=== PATIENT | female | born 1970 | race Caucasian/White ===

== ENCOUNTER → 2016-05-03 | Outpatient (CLI) | payer OTHER ==
--- NOTE | 2016-05-03 09:55 | USB ---
Reason for exam: clinical finding. History: Patient is postmenopausal. Family history of breast cancer in maternal grandmother at age 60, breast cancer in paternal grandmother, breast cancer in maternal aunt at age 40, and breast cancer in maternal aunt at age 48. Benign US left CoreBiopsy of both breasts, January 24, 2007. Benign US left CoreBiopsy of the left breast, March 31, 2005. Benign excisional biopsy of the left breast, July 2004. Excisional biopsy of the right breast, May 2000. Cyst aspiration of the right breast, April 2000. Took hormonal contraceptives for 7 years beginning at age 18. Indicated problem(s): palpable abnormality in the right breast. Physical Findings: Nurse did not find any significant physical abnormalities on exam. US Breast BILAT Left breast ultrasound including all four quadrants, the retroareolar region and axilla demonstrates a 0.4 x 0.3 x 0.4cm oval, cystic lesion at 9 o'clock and a 0.3 x 0.2 x 0.4cm oval, cystic lesion at 2 o'clock. Right breast ultrasound including all four quadrants, the retroareolar region and axilla demonstrates a 0.2 x 0.2 x 0.3cm oval lesion too small to characterize at 11 o'clock. These results were verbally communicated with the patient and result sheet given to the patient on 05/03/16. ASSESSMENT: Benign, BI-RAD 2 RECOMMENDATION: Routine screening mammogram of both breasts in 4 months. Back on schedule.
== END | disposition home or self-care (01) ==
LOC: RADUSWWP 08:45
PROVIDERS: ATTEND Surgery
DX: R92.8 Other abnormal and inconclusive findings on diagnostic imaging of breast (principal)

== ENCOUNTER → 2016-05-03 | Outpatient (CLI) | payer OTHER ==
[2016-05-03 10:12] LABS: Basophils % (A) 1 %; CH 34.4; CHCM 31.8; Eosinophils # (A) 0.2 k/uL (0-0.7); Eosinophils % (A) 6 %; HCT 43.9 % (34.0-46.0); HDW 2.75; HGB 14.1 gm/dL (11.4-16.0); Luc # (Auto) 0.11; Luc % (Auto) 3; Lymphocytes # (A) 1.4 k/uL (1.0-4.8); Lymphocytes % (A) 33 %; MCHC 32.1 g/dL (31.0-37.0); MCV 108.9 fL (80.0-100.0); Macrocytosis Marked; Mean Platelet Volume 6.3; Monocytes # (A) 0.2 k/uL (0-1.0); Monocytes % (A) 5 %; Neutrophils # (A) 2.2 k/uL (1.3-7.7); Neutrophils % (A) 53 %; RBC 4.03 m/uL (3.80-5.40); WBC 4.1 k/uL (3.8-10.6); WBC (Perox) 4.25
[2016-05-03 10:16] LABS: Partial Thromboplastin Time 25.5 sec (22.0-30.0); Prothrombin Time 9.8 sec (9.0-12.0)
[2016-05-03 10:47] LABS: ALT 38 U/L (9-52); AST 35 U/L (14-36); Alkaline Phosphatase 72 U/L (38-126); Anion Gap 6 mmol/L; Blood Urea Nitrogen 18 mg/dL (7-17); Calcium 8.1 mg/dL (8.4-10.2); Carbon Dioxide 24 mmol/L (22-30); Chloride 111 mmol/L (98-107); Glucose 79 mg/dL (74-99); Non-African American GFR(MDRD) >60 (>60 ml/min/1.73 sqM); Potassium 4.2 mmol/L (3.5-5.1); Sodium 141 mmol/L (137-145); Total Bilirubin 0.2 mg/dL (0.2-1.3); Total Protein 5.5 g/dL (6.3-8.2)
[2016-05-03 11:22] LABS: Manual Review Performed
== END | disposition home or self-care (01) ==
LOC: LABWHC1 09:35
PROVIDERS: ATTEND Neurological Surgery
DX: M54.12 Radiculopathy, cervical region (principal); M54.14 Radiculopathy, thoracic region; M54.16 Radiculopathy, lumbar region; G44.52 New daily persistent headache (NDPH)
CPT/HCPCS: 36415; 80053; 85025; 85610; 85730

== ENCOUNTER → 2016-06-11 | Outpatient (CLI) | payer OTHER ==
[2016-06-11 12:46] LABS: Appearance,Urine Clear (Clear); Bilirubin,Urine Negative (Negative); Glucose,Urine (UA) Negative (Negative); Ketones,Urine Negative (Negative); Leukocyte Esterase,Urine Negative (Negative); Nitrite,Urine Negative (Negative); Protein,Urine Negative (Negative); Specific Gravity,Urine 1.015 (1.001-1.035); UA Billing (MACRO vs. MICRO) CHEM; Urobilinogen,Urine <2.0 mg/dL (<2.0)
[2016-06-11 12:49] LABS: INR 0.9 (<1.1); Prothrombin Time 9.4 sec (9.0-12.0)
[2016-06-11 13:07] LABS: Basophils % (A) 1 %; CH 35.9; CHCM 32.5; Eosinophils # (A) 0.1 k/uL (0-0.7); Eosinophils % (A) 3 %; HCT 35.2 % (34.0-46.0); HDW 2.72; Luc # (Auto) 0.09; Luc % (Auto) 2; Lymphocytes # (A) 1.1 k/uL (1.0-4.8); Lymphocytes % (A) 21 %; MCH 35.1 pg (25.0-35.0); MCHC 31.6 g/dL (31.0-37.0); MCV 111.1 fL (80.0-100.0); Macrocytosis Marked; Mean Platelet Volume 7.8; Monocytes # (A) 0.2 k/uL (0-1.0); Monocytes % (A) 4 %; Neutrophils # (A) 3.8 k/uL (1.3-7.7); Neutrophils % (A) 70 %; RBC 3.17 m/uL (3.80-5.40); RDW 15.8 % (11.5-15.5); WBC 5.4 k/uL (3.8-10.6); WBC (Perox) 5.52
[2016-06-11 13:08] LABS: ALT 31 U/L (9-52); AST 35 U/L (14-36); Alkaline Phosphatase 80 U/L (38-126); Anion Gap 5 mmol/L; Blood Urea Nitrogen 17 mg/dL (7-17); Calcium 8.2 mg/dL (8.4-10.2); Carbon Dioxide 29 mmol/L (22-30); Chloride 107 mmol/L (98-107); Glucose 89 mg/dL (74-99); HGB 11.1 gm/dL (11.4-16.0); Non-African American GFR(MDRD) >60 (>60 ml/min/1.73 sqM); Potassium 4.2 mmol/L (3.5-5.1); Sodium 141 mmol/L (137-145); Total Bilirubin 0.2 mg/dL (0.2-1.3); Total Protein 5.4 g/dL (6.3-8.2)
[2016-06-11 13:49] LABS: Polychromasia Present
== END | disposition home or self-care (01) ==
LOC: LABWHC1 12:03
PROVIDERS: ATTEND Neurological Surgery
DX: Z01.812 Encounter for preprocedural laboratory examination (principal); Z01.810 Encounter for preprocedural cardiovascular examination; Z01.811 Encounter for preprocedural respiratory examination; Z01.82 Encounter for allergy testing; Z01.83 Encounter for blood typing
CPT/HCPCS: 36415; 80053; 81003; 85025; 85610; 85730; 87086

== ENCOUNTER → 2017-04-28 | Outpatient (CLI) | payer OTHER ==
--- NOTE | 2017-04-28 15:36 | US ---
EXAMINATION TYPE: US thyroid st tissue head/neck DATE OF EXAM: 04/28/2017 COMPARISON: NONE CLINICAL HISTORY: E03.9 Acquired Hypothyroidism. Hypothyroidism, patient on thyroid meds GLAND SIZE: Right Lobe: 4.6 x 1.2 x 1.9 cm Overall Parenchyma: heterogenous Left Lobe: 4.1 x 1.2 x 1.5 cm Overall Parenchyma: heterogeneous Isthmus Thickness: 0.2 cm NODULES RIGHT: # of nodules measured on right: 1 1. 1.2 X 0.7 x 1.1 cm hyperechoic solid nodule at the lower pole with well-defined margins. This no dule is wider than tall and shows intranodular vascularity. Prior size: no previous LEFT: # of nodules measured on left: 1 1. 0.4 X 0.3 x 0.4 cm hyperechoic solid nodule at the mid pole with well-defined margins. This nodu le is wider than tall and shows no intranodular vascularity. Prior size: no previous ISTHMUS: # of nodules measured in the isthmus: 0 Bilateral neck scanned, no evidence of lymphadenopathy. Heterogeneous gland with bilateral nodules described above. IMPRESSION: Heterogeneous normal size Thyroid with hyperechoic 1.2 cm solid nodule lower pole level.
== END | disposition home or self-care (01) ==
LOC: RADUSMAIN 15:00
PROVIDERS: ATTEND Family Medicine
DX: E04.1 Nontoxic single thyroid nodule (principal); E03.9 Hypothyroidism, unspecified
CPT/HCPCS: 76536

== ENCOUNTER → 2017-05-05 | Outpatient (CLI) | payer OTHER ==
--- NOTE | 2017-05-05 12:00 | XR ---
EXAMINATION TYPE: XR chest 2V DATE OF EXAM: 05/05/2017 COMPARISON: 08/15/2015 HISTORY: Chest pain TECHNIQUE: Frontal and lateral views of the chest are obtained. FINDINGS: There is no focal air space opacity. No evidence for pneumothorax. No pleural effusion. The cardiac silhouette size is within normal limits. The osseous structures are grossly intact. IMPRESSION: 1. No acute cardiopulmonary process.
[2017-05-05 12:01] LABS: Basophils % (A) 1 %; Eosinophils # (A) 0.3 k/uL (0-0.7); Eosinophils % (A) 4 %; HCT 43.9 % (34.0-46.0); HGB 14.1 gm/dL (11.4-16.0); Lymphocytes # (A) 1.3 k/uL (1.0-4.8); Lymphocytes % (A) 16 %; MCH 33.3 pg (25.0-35.0); Macrocytosis Slight; Mean Platelet Volume 6.2; Monocytes # (A) 0.3 k/uL (0-1.0); Monocytes % (A) 4 %; Neutrophils # (A) 5.8 k/uL (1.3-7.7); Neutrophils % (A) 75 %; Platelet Count 436 k/uL (150-450); RBC 4.22 m/uL (3.80-5.40); RDW 13.9 % (11.5-15.5); WBC 7.8 k/uL (3.8-10.6)
[2017-05-05 12:21] LABS: ALT 25 U/L (9-52); AST 21 U/L (14-36); Albumin 3.8 g/dL (3.5-5.0); Alkaline Phosphatase 76 U/L (38-126); Anion Gap 10 mmol/L; Blood Urea Nitrogen 23 mg/dL (7-17); Calcium 9.7 mg/dL (8.4-10.2); Carbon Dioxide 28 mmol/L (22-30); Chloride 105 mmol/L (98-107); Glucose 85 mg/dL (74-99); Potassium 4.2 mmol/L (3.5-5.1); Sodium 143 mmol/L (137-145); Total Bilirubin 0.2 mg/dL (0.2-1.3); Total Protein 6.3 g/dL (6.3-8.2)
[2017-05-05 12:37] LABS: INR 0.9 (<1.2); Partial Thromboplastin Time 24.2 sec (22.0-30.0); Prothrombin Time 9.4 sec (9.0-12.0)
== END | disposition home or self-care (01) ==
LOC: RADXRMAIN 11:16
PROVIDERS: ATTEND Family Medicine
DX: M54.5 Low back pain (principal)
CPT/HCPCS: 36415; 71046; 80053; 81001; 85025; 85610; 85730; 87086

== ENCOUNTER → 2017-08-12 | Outpatient (CLI) | payer OTHER ==
--- NOTE | 2017-08-14 09:52 | MR ---
EXAMINATION TYPE: MR brain wo/w con DATE OF EXAM: 08/12/2017 COMPARISON: 02-27-16 HISTORY: MS, compare to prior MR 02-27-16 TECHNIQUE: Multiplanar, multisequence images of the brain and brainstem is performed without and with utilizing 5.5 mL intravenous Gadavist gadolinium contrast. Demyelinating disease protocol with additional Sagi ttal Flair sequence performed. FINDINGS: T2 Lesions Present : Yes Approximate Number of Lesions: 1 on the right Locations Identified : Periventricular Size of Reference Lesion(s): 1. 0.5 cm x 0.2 cm x 0.2 cm on axial image 19 and sagittal image 20 Enhancing Lesion(s) Present: No T1 Hypointense Lesion(s) Present: No Change from Prior: Increase Diffusion weighted images demonstrate no evidence of a recent infarct or other diffusion abnormality. There is no worrisome extra-axial fluid collection. The ventricular system and cisternal spaces ar e normal in size and appearance. The brain volume is age appropriate. Midline structures demonstrate normal morphology. The craniocervical junction appears within normal limits. Post contrast images demonstrate no abnormal enhancement. The dural venous sinuses appear pa tent. The visualized sinuses are clear and the globes are intact. Mucosal thickening is incidentally seen along the right nasal turbinates. IMPRESSION: Solitary nonenhancing new right subcentimeter periventricular frontal lobe focus of white matter dodd ge is nonspecific but may represent a nonactive demyelinating plaque in this patient with history of multiple sclerosis. This is new from the prior 2015. No additional white matter changes are seen.
== END | disposition home or self-care (01) ==
LOC: RADMRIMAIN 16:39
PROVIDERS: ATTEND Psychiatry & Neurology Neurology
DX: R90.89 Other abnormal findings on diagnostic imaging of central nervous system (principal); G35 Multiple sclerosis
CPT/HCPCS: 70553; A9581

== ENCOUNTER → 2017-09-12 | Outpatient (CLI) | payer OTHER ==
[2017-09-12 20:22] LABS: Total Protein,CSF 33 mg/dL (12-60)
[2017-09-12 20:29] LABS: Appearance,CSF Clear; CSF Tube Number 4
[2017-09-12 20:30] LABS: CSF Tube Volume 3.5; Nucleated Cells, CSF 0 u/L (0-5); Red Blood Cell,CSF 2 u/L (0-10)
[2017-09-14 11:06] LABS: IgG - CSF 0.6 mg/dL (0.0 - 3.4); IgG/Albumin Index (CSF) 0.53 (0.00 - 0.77); Immunoglobulin G 333 mg/dL (700 - 1600)
== END | disposition home or self-care (01) ==
LOC: LABWHC1 09:03
PROVIDERS: ATTEND Nurse Practitioner Acute Care
DX: R90.82 White matter disease, unspecified (principal); R42 Dizziness and giddiness
CPT/HCPCS: 36415; 82040; 82042; 82784; 83873; 83916; 84157; 87476; 89050

== ENCOUNTER → 2018-01-26 | Outpatient (CLI) | payer OTHER ==
--- NOTE | 2018-01-26 09:29 | MR ---
EXAMINATION TYPE: MR brain wo/w con DATE OF EXAM: 01/26/2018 COMPARISON: 08/12/2017 HISTORY: Multiple sclerosis, Left side weakness/numbness, Dizziness TECHNIQUE: Multiplanar, multisequence images of the brain and brainstem is performed without and with IV contras t, utilizing 5 mL intravenous Gadavist . FINDINGS: T2 Lesions Present : Yes Approximate Number of Lesions: 1 on the right Locations Identified : Periventricular Size of Reference Lesion(s): 1. 0.5 cm x 0.2 cm x 0.2 cm Enhancing Lesion(s) Present: No T1 Hypointense Lesion(s) Present: No Change from Prior: Stable Diffusion weighted images demonstrate no evidence of a recent infarct or other diffusion abnormality. There is no extra-axial fluid collection or significant white matter signal abnormality. The ventr icular system and cisternal spaces are normal in size and appearance. The brain volume is age approp riate. Midline structures demonstrate normal morphology. The craniocervical junction appears within normal limits. Post contrast images demonstrate no abnormal enhancement. The dural venous sinuses appear pa tent. Nasal septal deviation noted. Minimal changes of sinusitis. Small amount of fluid surrounding t he optic nerves bilaterally is nonspecific. IMPRESSION: 1. Stable 5 mm single nonspecific white matter lesion within the right frontal lobe. 2. Small amount of fluid surrounding the optic nerves is stable from prior exam. This can occasionall y be associated with benign increased intracranial hypertension. Correlate clinically.
== END | disposition home or self-care (01) ==
LOC: RADMRIMAIN 08:25
PROVIDERS: ATTEND Psychiatry & Neurology Neurology
DX: G93.89 Other specified disorders of brain (principal); G35 Multiple sclerosis; Z91.041 Radiographic dye allergy status; Z88.0 Allergy status to penicillin; Z88.8 Allergy status to other drugs, medicaments and biological substances
CPT/HCPCS: 70553; A9585

== ENCOUNTER → 2018-06-27 | Outpatient (CLI) | payer OTHER ==
--- NOTE | 2018-06-27 11:13 | US ---
EXAMINATION TYPE: US abdomen complete DATE OF EXAM: 06/27/2018 COMPARISON: CT CLINICAL HISTORY: R74.8 Abnormal levels of other serum enzym, R10.11. EXAM MEASUREMENTS: Liver Length: 14.3 cm Gallbladder Wall: 0.3 cm CBD: 1.0 cm Spleen: 9.7 cm Right Kidney: 11.7 x 4.9 x 5.8 cm Left Kidney: 12.8 x 5.9 x 4.8 cm Pancreas: visualized portions wnl Liver: wnl Gallbladder: No stones seen Evidence for sonographic Barr's sign: No CBD: measures 1.0 cm, can see entire length to panc head, no stone or mass seen. Spleen: wnl Right Kidney: lower pole partially obscured by bowel. Left Kidney: wnl Upper IVC: wnl Abd Aorta: normal as visualized, bifurcation not seen due to midline bowel gas. The liver is homogenous. The intrahepatic portion of the IVC and proximal abdominal aorta are within normal limits. There is no evidence of cholelithiasis. Common bile duct is unremarkable. The visu alized portions of the pancreas are homogenous. The spleen is unremarkable. Kidneys are symmetric a nd free of hydronephrosis. No renal lesions are seen. IMPRESSION: No distinct abnormality appreciated.
== END | disposition home or self-care (01) ==
LOC: RADUSWWP 10:43
PROVIDERS: ATTEND Family Medicine
DX: R10.11 Right upper quadrant pain (principal); R74.8 Abnormal levels of other serum enzymes
CPT/HCPCS: 76700

== ENCOUNTER → 2018-10-10 | Outpatient (CLI) | payer OTHER ==
[2018-10-10 09:36] LABS: Basophils % (A) 1 %; Eosinophils # (A) 0.2 k/uL (0-0.7); Eosinophils % (A) 4 %; HCT 39.4 % (34.0-46.0); HGB 12.7 gm/dL (11.4-16.0); Hypochromasia Slight; Lymphocytes # (A) 0.5 k/uL (1.0-4.8); Lymphocytes % (A) 12 %; MCH 32.6 pg (25.0-35.0); MCHC 32.2 g/dL (31.0-37.0); Macrocytosis Slight; Mean Platelet Volume 6.8; Monocytes # (A) 0.4 k/uL (0-1.0); Monocytes % (A) 8 %; Neutrophils # (A) 3.3 k/uL (1.3-7.7); Neutrophils % (A) 73 %; Platelet Count 406 k/uL (150-450); RDW 14.7 % (11.5-15.5); WBC 4.5 k/uL (3.8-10.6)
[2018-10-10 11:49] LABS: Erythrocyte Sedimentation Rate 19 mm/hr (0-20)
== END | disposition home or self-care (01) ==
LOC: LABWHC1 08:00
PROVIDERS: ATTEND Psychiatry & Neurology Pain Medicine
DX: Z51.81 Encounter for therapeutic drug level monitoring (principal)
CPT/HCPCS: 36415; 85025; 85652; 86140

== ENCOUNTER → 2018-10-17 | Outpatient (CLI) | payer OTHER ==
--- NOTE | 2018-10-17 12:07 | XR ---
2 view abdomen HISTORY: Palpable mass, G 97.0 Frontal and lateral views of the abdomen submitted and correlated prior exam 05/30/2015 The pain pump is present overlying the right lower quadrant. There is a catheter coursing posteriorly along the right flank and toward a junction point in the gluteal region, catheter courses toward the spinal canal from this level but is not well seen but likely extends to the level of patient's marquita ectomies. Lung bases are clear. Surgical change noted to the left upper quadrant. Anterolisthesis gra de 1 L4-5. Gluteal region does appear prominently. IMPRESSION: Postprocedural changes as described. There may be soft tissue swelling.
--- NOTE | 2018-10-17 12:09 | XR ---
Lumbar spine HISTORY: Palpable mass lower back, G 97.0 Pain pump is present over the right lower quadrant. Catheter courses around the right flank to a junc tion point in the right gluteal region, there is local soft tissue swelling. Anterolisthesis grade 1 L4-5, retrolisthesis grade 1 L5-S1. There is loss of disc height L4-5 and L5-S1. Vascular calcificati ons are noted incidentally. There are laminectomies at L4 and L5. Lumbar vertebral bodies show preser melodie height. Bone mineralization is maintained. IMPRESSION: Degenerative disc disease, postop change, soft tissue swelling. Additional findings above .
== END | disposition home or self-care (01) ==
LOC: RADXRMAIN 11:21
PROVIDERS: ATTEND Neurological Surgery
DX: G97.0 Cerebrospinal fluid leak from spinal puncture (principal); M51.36 Other intervertebral disc degeneration, lumbar region; M43.16 Spondylolisthesis, lumbar region; Z98.890 Other specified postprocedural states
CPT/HCPCS: 72100; 74019

== ENCOUNTER → 2019-01-02 | Outpatient (CLI) | payer OTHER ==
[2019-01-02 09:44] LABS: Basophils % (A) 1 %; Eosinophils # (A) 0.2 k/uL (0-0.7); Eosinophils % (A) 4 %; HCT 42.3 % (34.0-46.0); HGB 13.2 gm/dL (11.4-16.0); Lymphocytes # (A) 0.4 k/uL (1.0-4.8); Lymphocytes % (A) 10 %; MCH 31.1 pg (25.0-35.0); MCHC 31.1 g/dL (31.0-37.0); MCV 99.8 fL (80.0-100.0); Mean Platelet Volume 6.2; Monocytes # (A) 0.3 k/uL (0-1.0); Monocytes % (A) 6 %; Neutrophils # (A) 3.2 k/uL (1.3-7.7); Neutrophils % (A) 77 %; Platelet Count 346 k/uL (150-450); RBC 4.24 m/uL (3.80-5.40); WBC 4.1 k/uL (3.8-10.6)
[2019-01-02 10:02] LABS: INR 0.9 (<1.2); Partial Thromboplastin Time 25.8 sec (22.0-30.0); Prothrombin Time 9.8 sec (9.0-12.0)
[2019-01-02 10:12] LABS: Appearance,Urine Clear (Clear); Bacteria,Urine Rare /hpf; Bilirubin,Urine Negative (Negative); Blood,Urine Negative (Negative); Color,Urine Yellow; Glucose,Urine (UA) Negative (Negative); Ketones,Urine Negative (Negative); Leukocyte Esterase,Urine Negative (Negative); Mucus,Urine Few /hpf; Nitrite,Urine Positive (Negative); Protein,Urine Negative (Negative); RBC,Urine 2 /hpf (0-5); Specific Gravity,Urine 1.014 (1.001-1.035); Squamous Epithelial Cell,Urine <1 /hpf (0-4); Urobilinogen,Urine <2.0 mg/dL (<2.0)
[2019-01-02 16:07] LABS: African American GFR (CKD) 132.6 (60.0-200.0); Albumin/Globulin Ratio 2.67 (1.60-3.17); Anion Gap 9.4 mmol/L (4.00-12.00); Calcium 8.8 mg/dL (8.7-10.3); Carbon Dioxide 26.6 mmol/L (21.6-31.8); Globulin 1.5 g/dL (1.6-3.3); Potassium 3.9 mmol/L (3.5-5.5); Total Bilirubin 0.1 mg/dL (0.2-1.2); Total Protein 5.5 g/dL (6.2-8.2)
== END | disposition home or self-care (01) ==
LOC: LABWHC1 09:04
PROVIDERS: ATTEND Neurological Surgery
DX: T85.610D Breakdown (mechanical) of cranial or spinal infusion catheter, subsequent encounter (principal); G96.19 Other disorders of meninges, not elsewhere classified
CPT/HCPCS: 36415; 80053; 81001; 85025; 85610; 85730

== ENCOUNTER → 2019-01-09 | Outpatient (CLI) | payer OTHER ==
--- NOTE | 2019-01-09 09:32 | XR ---
EXAMINATION TYPE: XR chest 2V DATE OF EXAM: 01/09/2019 COMPARISON: 05/05/2017 HISTORY: 48-year-old female preprocedural exam TECHNIQUE: Frontal and lateral views FINDINGS: The cardiomediastinal silhouette, aorta, and pulmonary vasculature are within normal limits. Lungs an d pleural spaces are clear. Partially visualized ACDF hardware. IMPRESSION: No acute cardiopulmonary process.
== END | disposition home or self-care (01) ==
LOC: RADXRMAIN 07:49
PROVIDERS: ATTEND Neurological Surgery
DX: Z01.818 Encounter for other preprocedural examination (principal)
CPT/HCPCS: 71046

== ENCOUNTER → 2019-05-22 | Outpatient (CLI) | payer OTHER ==
--- NOTE | 2019-05-22 11:55 | FL ---
EXAMINATION TYPE: FL barium swallow w video DATE OF EXAM: 05/22/2019 MODIFIED SWALLOW / DEGLUTITION STUDY CLINICAL HISTORY: Dysphagia. Multiple sclerosis. TECHNIQUE: Deglutition study is performed utilizing thin liquid barium, pudding thick liquid barium, and barium coated cracker. 44 seconds of fluoroscopy time was utilized during the examination with 0 fluoroscopic images saved as the examination was video recorded. COMPARISON: None. FINDINGS: The oral and pharyngeal phases show satisfactory initiation and propagation with all modali ties tested. Normal mastication is seen with solid modalities tested. There is no evidence of penet ration or aspiration with any modality tested. No significant pharyngeal residue was appreciated. IMPRESSION: Unremarkable deglutition study. Please refer to speech therapist notes for further detai ls if necessary.
== END | disposition home or self-care (01) ==
LOC: RADFLMAIN 09:55
PROVIDERS: ATTEND Family Medicine
DX: R13.10 Dysphagia, unspecified (principal)
CPT/HCPCS: 74230

== ENCOUNTER 2019-08-17 23:09 | Emergency (ER) | payer OTHER ==
[2019-08-17] MEDS ORDERED: methylPREDNISolone SOD SUCCI 125 MG/2 ML VIAL IV STA (23:44)
[2019-08-17] MEDS ORDERED: FAMOTIDINE 20 MG/2 ML VIAL IV STA (23:45)
[2019-08-17] MEDS ORDERED: diphenhydrAMINE 50 MG/ML 1 ML VIAL IVP STA (23:45)
--- NOTE | 2019-08-17 23:49 | ED ---
Allergic Reaction HPI - General Chief complaint: Allergic Reaction Stated complaint: Allergic reaction Time Seen by Provider: 08/17/19 23:26 Source: patient, RN notes reviewed, old records reviewed Mode of arrival: ambulatory Limitations: no limitations - History of Present Illness Initial Comments: Patient is a 49-year-old female who presents emergency department today with ALLERGIC reaction to tizanidine a new medication. She reports that she's had this new medication since Tuesday of this week taking it 3 times a day. Patient states that after her last dose this evening approximately 15 minutes later she developed a red, Prickly feeling rash over her arms and legs and trunk. She also complains of some upper cheek swelling. Patient at this time denies any significant difficulty breathing or tongue swelling. - Related Data Home Medications Medication Instructions Recorded Confirmed Albuterol Sulfate [Ventolin HFA] 2 puff INHALATION RT-QID PRN 02/07/15 01/09/19 Albuterol Nebulized [Ventolin 2.5 mg INHALATION RT-Q6H PRN 01/11/17 01/09/19 Nebulized] Amitriptyline HCl [Elavil] 100 mg PO DAILY 07/04/18 01/09/19 Buta/APAP/Caf/Cod 01-587-42-30 1 cap PO DIRECTED PRN 07/04/18 01/09/19 [Fioricet w/Cod 98-726-52-30MG] Cyclobenzaprine [Flexeril] 10 mg PO DAILY 07/04/18 01/09/19 Fingolimod HCl [Gilenya] 0.5 mg PO DAILY 07/04/18 01/09/19 Galcanezumab-Gnlm [Emgality] 120 mg SQ DIRECTED 07/04/18 01/09/19 Metoprolol Tartrate 25 mg PO DAILY 07/04/18 01/09/19 Omeprazole 20 mg PO DAILY 07/04/18 01/09/19 HYDROcodone/APAP 5-325MG [[place] 1 tab PO Q6HR PRN 10/10/18 01/09/19 5-325] Morphine Pain Pump 1.557 mg INTRATHECA DAILY MDD 10/10/18 01/09/19 1.557mg/day Previous Rx's Medication Instructions Recorded Thyroid, Pork [[place] Thyroid] 15 mg PO DAILY #30 tab 02/09/17 predniSONE [Deltasone] 20 mg PO BID #6 tab 08/18/19 Allergies Allergy/AdvReac Type Severity Reaction Status Date / Time gabapentin [From Neurontin] Allergy Rash/Hives Verified 08/17/19 23:21 influenza virus vaccine ts Allergy DIFFICULTY Verified 08/17/19 23:21 2012- BREATHING, [From Fluarix] RASH Iodinated Contrast Media Allergy Anaphylaxis Verified 08/17/19 23:21 [Iodinated Contrast Media - IV Dye] levothyroxine sodium Allergy Unknown Verified 08/17/19 23:21 [From Synthroid] magnesium Allergy rash,muscle Verified 08/17/19 23:21 spasms Penicillins Allergy Anaphylaxis Verified 08/17/19 23:21 Review of Systems ROS Statement: Those systems with pertinent positive or pertinent negative responses have been documented in the HPI. ROS Other: All systems not noted in ROS Statement are negative. Past Medical History Past Medical History: Blood Disorder, COPD, Fibromyalgia, GERD/Reflux, Musculoskeletal Disorder, Thyroid Disorder Additional Past Medical History / Comment(s): Chronic, chronic peptic ulcer disease, chronic abdominal pain, COPD, chronic neck pain related to previous neck injury, previous history of perforated gastric ulcer, chronic back pain related to lumbar disc disease, irritable bowel disease, COPD. FIBROMYALGIA,MS. HASHIMOTOS AND HYPOTHYROIDISM. Seroma opatient's back. - September 2018 History of Any Multi-Drug Resistant Organisms: None Reported Past Surgical History: Breast Surgery, Hysterectomy, Orthopedic Surgery, Tubal Ligation Additional Past Surgical History / Comment(s): Breast biopsy, hysterectomy, tubal ligation, stomach surgery for a perforated peptic ulcer, bilateral breast biopsies, right foot surgery, sinus surgery , gastrectomy. Abdominal Pain Pump surgically inserted in July 2018, removal jan 2019 Past Anesthesia/Blood Transfusion Reactions: Previous Problems w/ Anesthesia, Postoperative Nausea & Vomiting (PONV) Additional Past Anesthesia/Blood Transfusion Reaction / Comment(s): RASH from general anesthesia, RECEIVES BENADRYL FOR GENERAL ANESTHESIA. Past Psychological History: Anxiety Smoking Status: Current every day smoker Past Alcohol Use History: Rare Past Drug Use History: None Reported - Past Family History Father Family Medical History: Cancer Additional Family Medical History / Comment(s): lung cancer(inoperable) Brother(s) Family Medical History: Hypertension Mother Family Medical History: No Reported History Additional Family Medical History / Comment(s): bowel blockage and resection done General Exam - General Exam Comments Initial Comments: Alert and oriented 49-year-old female. No distress. Limitations: no limitations General appearance: alert, in no apparent distress Head exam: Present: atraumatic, normocephalic, normal inspection Eye exam: Present: normal appearance, PERRL, EOMI. Absent: scleral icterus, conjunctival injection, periorbital swelling ENT exam: Present: normal exam, mucous membranes moist Neck exam: Present: normal inspection. Absent: tenderness, meningismus, lymphadenopathy Respiratory exam: Present: normal lung sounds bilaterally. Absent: respiratory distress, wheezes, rales, rhonchi, stridor Cardiovascular Exam: Present: regular rate, normal rhythm, normal heart sounds. Absent: systolic murmur, diastolic murmur, rubs, gallop, clicks GI/Abdominal exam: Present: soft, normal bowel sounds. Absent: distended, tenderness, guarding, rebound, rigid Extremities exam: Present: normal inspection, full ROM, normal capillary refill. Absent: tenderness, pedal edema, joint swelling, calf tenderness Back exam: Present: normal inspection Neurological exam: Present: alert, oriented X3, CN II-XII intact Psychiatric exam: Present: normal affect, normal mood Skin exam: Present: warm, dry, intact, normal color. Absent: rash (No apparent urticaria or significant rash at this time.) Course Vital Signs 08/17/19 08/18/19 23:15 00:36 Temperature 98.1 F 97.9 F Pulse Rate 100 91 Respiratory 15 18 Rate Blood Pressure 130/81 129/91 O2 Sat by Pulse 98 98 Oximetry Medical Decision Making - Medical Decision Making 49-year-old female presents emergency room today for evaluation concern for ALLERGIC reaction. She states that she thinks that she's having a reaction to tizanidine. She started this new medication this week. She denies tingling sensation of her body and reticulocyte prickly-like rash over arms and legs. No significant redness to proceed on exam. She was given IV Solu-Medrol Pepcid and Benadryl. Reevaluation she is resting in bed. I discussed the Patient needs follow-up with her primary care doctor and advise discontinuing further prescription for tizanidine. Patient is agreeable to treatment plan will comply. Disposition Clinical Impression: Adverse drug reaction Disposition: HOME SELF-CARE Condition: Good Instructions (If sedation given, give patient instructions): Adverse Drug Reaction (ED) Additional Instructions: Please use medication as discussed. Recommended stopping Zanaflex. Please follow up with family doctor if symptoms have not improved over the next two days. Please return to the emergency room if your symptoms increase or worsen or for any other concerns. Prescriptions: predniSONE [Deltasone] 20 mg PO BID #6 tab Is patient prescribed a controlled substance at d/c from ED?: No Referrals: Malorie Gustafson MD [Primary Care Provider] - 1-2 days Time of Disposition: 00:39
[2019-08-18 00:37] VITALS: BP 129/91; PULSE 91; RESP 18; TEMP 97.9
== END 2019-08-18 00:43 | disposition home or self-care (01) ==
LOC: EC 23:09
DX: R21 Rash and other nonspecific skin eruption (principal); T42.8X5A Adverse effect of antiparkinsonism drugs and other central muscle-tone depressants, initial encounter; J44.9 Chronic obstructive pulmonary disease, unspecified; K21.9 Gastro-esophageal reflux disease without esophagitis; F17.200 Nicotine dependence, unspecified, uncomplicated; Z79.899 Other long term (current) drug therapy; Z88.8 Allergy status to other drugs, medicaments and biological substances; Z88.7 Allergy status to serum and vaccine; Z91.041 Radiographic dye allergy status; Z88.0 Allergy status to penicillin; Z90.710 Acquired absence of both cervix and uterus
CPT/HCPCS: 99283; 96374; 96375 ×2; J1200; J2930

== ENCOUNTER → 2019-09-12 | Outpatient (CLI) | payer MEDICARE, OTHER ==
--- NOTE | 2019-09-12 21:59 | CT ---
EXAMINATION TYPE: CT abdomen pelvis wo con DATE OF EXAM: 09/12/2019 HISTORY: Abnormal weight loss and generalized abdominal pain. CT DLP: 236.3 mGycm. Automated Exposure Control for Dose Reduction was Utilized. TECHNIQUE: CT scan of the abdomen and pelvis is performed with oral but without IV contrast. COMPARISON: CT abdomen and pelvis February 08, 2017 FINDINGS: Within the limitations of a non-contrast study, the following observations are made. LUNG BASES: Partial visualization of pectus excavatum deformity similar to prior.. LIVER/GB: No significant abnormality is appreciated. PANCREAS: No significant abnormality is seen. SPLEEN: No significant abnormality is seen. ADRENALS: No significant abnormality is seen. KIDNEYS: Single 2 to 3 mm calculus right kidney midpole level coronal image 40. No hydronephrosis not ed bilaterally. Mild distention of bladder. BOWEL: Distended stomach with contrast and debris on current study. Surgical sutures along the centra l right margin redemonstrated some contrast extends into prominent jejunal loops in the left abdomen with mild to moderate areas of wall thickening. Bowel anastomosis into dilated small bowel loop left upper to mid abdomen laterally is seen. Suspect distal antrectomy and jejunostomy. Nondistended nonco ntrast filled distal bowel loops in the lower abdomen and pelvis. Fecal material seen in nondistended colon along the periphery. GENITAL ORGANS: Uterus surgically absent or markedly atrophic in appearance. LYMPH NODES: No greater than 1cm abdominal or pelvic lymph nodes are appreciated. OSSEOUS STRUCTURES: Slight grade 1 anterolisthesis L4 on L5 mild to moderate disc space narrowing at this level. Laminectomy defects with spinous process resection L4 and L5 levels. Facet arthropathy lo wer lumbar levels. Demineralization is present. OTHER: No significant additional abnormality is seen. IMPRESSION: 1. Redemonstration of prior Alberto-en-Y weight loss surgery with new contrast and debris filled distend ed stomach. Prominent proximal small bowel loops. Areas of abnormal wall thickening. Possible partial obstruction and/or enteritis. Correlate clinically. 2. No suspicious mass or adenopathy to suggest neoplasm.
--- NOTE | 2019-09-13 08:11 | MM ---
Reason for exam: additional evaluation requested from prior study. Last mammogram was performed 2 years and 8 months ago. History: Patient is postmenopausal. Family history of breast cancer in maternal grandmother at age 60, breast cancer in paternal grandmother, breast cancer in maternal aunt at age 40, and breast cancer in maternal aunt at age 48. Benign US biopsy breast VAD LT of the left breast, January 20, 2017. Benign US left CoreBiopsy of both breasts, January 24, 2007. Benign US left CoreBiopsy of the left breast, March 31, 2005. Benign excisional biopsy of the left breast, July 2004. Excisional biopsy of the right breast, May 2000. Cyst aspiration of the right breast, April 2000. Took hormonal contraceptives for 7 years beginning at age 18. Physical Findings: Nurse Summary: 0.5 x 0.5cm nodule in the right breast at 12 o'clock and 11 o'clock axilla and a 0.5 x 0.5cm nodule in the left breast at 10 o'clock (nurse ts). [facility] Diagnostic Mammo w CAD ERIKA Bilateral CC and MLO view(s) were taken. Prior study comparison: January 20, 2017, left breast MG diagnostic mammo LT wo CAD. January 13, 2017, bilateral MG diagnostic mammo w CAD ERIKA. The breast tissue is extremely dense which could obscure a lesion on mammography. Stable benign calcifications. There is no discrete abnormality including area of concern. These results were verbally communicated with the patient and result sheet given to the patient on 09/12/19. ASSESSMENT: Incomplete: need additional imaging evaluation, BI-RAD 0 RECOMMENDATION: Ultrasound of both breasts. Manage patient on a clinical basis.
--- NOTE | 2019-09-13 08:15 | USB ---
Reason for exam: additional evaluation requested from abnormal screening. History: Patient is postmenopausal. Family history of breast cancer in maternal grandmother at age 60, breast cancer in paternal grandmother, breast cancer in maternal aunt at age 40, and breast cancer in maternal aunt at age 48. Benign US biopsy breast VAD LT of the left breast, January 20, 2017. Benign US left CoreBiopsy of both breasts, January 24, 2007. Benign US left CoreBiopsy of the left breast, March 31, 2005. Benign excisional biopsy of the left breast, July 2004. Excisional biopsy of the right breast, May 2000. Cyst aspiration of the right breast, April 2000. Took hormonal contraceptives for 7 years beginning at age 18. US Breast BILAT Technologist: Madhavi Perry Right complete breast ultrasound includes all four quadrants, the retroareolar region and axilla. Finding demonstrates a 0.9 x 0.9 x 0.4cm hypoechoic lesion at 11 o'clock for which an ultrasound core biopsy recommended and a 0.5 x 0.6 x 0.3cm lesion at 4 o'clock. Left complete breast ultrasound includes all four quadrants, the retroareolar region and axilla. Finding demonstrates a 0.4 x 0.4 x 0.3cm cystic lesion at 9 o'clock and a 0.3 x 0.4 x 0.3cm lesion too small to characterize at 11 o'clock. These results were verbally communicated with the patient and result sheet given to the patient on 09/12/19. ASSESSMENT: Suspicious, BI-RAD 4 RECOMMENDATION: Ultrasound core biopsy of the right breast. Called Dr. Gustafson's office with mammographic findings and has scheduled an appointment for the patient for 10/01/19 at 9:[address] Calhoun. Biopsy scheduled for 09/26/19 at 10:30. PRELIMINARY REPORT CALLED AND FAXED TO DR. CALHOUN ON 09/13/19.
== END | disposition home or self-care (01) ==
LOC: RADMAMWWP 13:01
PROVIDERS: ATTEND Family Medicine
DX: R92.8 Other abnormal and inconclusive findings on diagnostic imaging of breast (principal); R63.4 Abnormal weight loss; K62.5 Hemorrhage of anus and rectum; Z98.84 Bariatric surgery status
CPT/HCPCS: 74176; 77066

== ENCOUNTER → 2019-09-12 | Outpatient (CLI) | payer MEDICARE, OTHER ==
[2019-09-12 21:04] LABS: T4, Free (Free Thyroxine) 0.7 ng/dL (0.80-1.80)
== END | disposition home or self-care (01) ==
LOC: LABWHC1 12:16
PROVIDERS: ATTEND Internal Medicine
DX: E06.3 Autoimmune thyroiditis (principal)
CPT/HCPCS: 36415; 84439; 84443; 93005

== ENCOUNTER → 2019-09-26 | Day surgery (SDC) | payer MEDICARE, OTHER ==
--- NOTE | 2019-09-27 10:22 | USB ---
Discontinued right breast biopsy HISTORY: Abnormal breast ultrasound Following discussion of the risks and benefits of procedure, patient has elected to defer biopsy at t his time. Patient requests repeat ultrasound in 3 months and reevaluation for biopsy. IMPRESSION: Aborted ultrasound-guided biopsy right breast, repeat breast ultrasound recommended in 3 months
== END ==
LOC: RADUSWWP 09:29
PROVIDERS: ATTEND Student in an Organized Health Care Education/Training Program
DX: Z53.9 Procedure and treatment not carried out, unspecified reason (principal)

== ENCOUNTER → 2020-05-09 | Outpatient (CLI) | payer MEDICARE, OTHER ==
[2020-05-09 15:05] LABS: HCT 38.6 % (37.2-46.3); HGB 12.3 g/dL (12.0-15.0); MCH 34.4 pg (27.0-32.0); MCHC 31.9 g/dL (32.0-37.0); MCV 107.8 fL (80.0-97.0); Platelet Count 362 X 10*3/uL (140-440); RBC 3.58 X 10*6/uL (4.10-5.20); RDW 13.9 % (11.5-14.5); WBC 5.92 X 10*3/uL (4.50-10.00)
[2020-05-09 16:17] LABS: African American GFR (CKD) 123.2 (60.0-200.0); Albumin 4.1 g/dL (3.80-4.90); Albumin/Globulin Ratio 2.41 (1.60-3.17); Anion Gap 6.5 mmol/L (4.00-12.00); BUN/Creat Ratio 43.33 Ratio (12.00-20.00); Calcium 8.9 mg/dL (8.7-10.3); Carbon Dioxide 27.5 mmol/L (21.6-31.8); Globulin 1.7 g/dL (1.6-3.3); Non-African American GFR(CKD) 106.3 (60.0-200.0); Potassium 4.8 mmol/L (3.5-5.5); Total Bilirubin 0.1 mg/dL (0.3-1.2); Total Protein 5.8 g/dL (6.2-8.2)
[2020-05-09 16:38] LABS: Basophils # (A) 0.05 X 10*3/uL (0.00-0.10); Basophils % (A) 0.8 %; Eosinophils # (A) 0.28 X 10*3/uL (0.04-0.35); Eosinophils % (A) 4.7 %; Lymphocytes % (A) 13.5 %; Monocytes # (A) 0.59 X 10*3/uL (0.20-1.00); Neutrophils # (A) 4.18 X 10*3/uL (1.80-7.70); Neutrophils % (A) 70.7 %
== END | disposition home or self-care (01) ==
LOC: LABWHC1 08:29
PROVIDERS: ATTEND Nurse Practitioner Acute Care
DX: Z51.81 Encounter for therapeutic drug level monitoring (principal); Z79.899 Other long term (current) drug therapy; E55.9 Vitamin D deficiency, unspecified; G35 Multiple sclerosis
CPT/HCPCS: 36415; 80053; 82306; 82607; 84207; 85025; 86787

== ENCOUNTER → 2020-12-11 | Outpatient (CLI) | payer MEDICARE, OTHER ==
--- NOTE | 2020-12-11 12:15 | US ---
EXAMINATION TYPE: US thyroid st tissue head/neck DATE OF EXAM: 12/11/2020 COMPARISON: Prior thyroid ultrasound 04/28/2017 CLINICAL HISTORY: E04.2 Nontoxic multinodular goiter. GLAND SIZE: Right Lobe: 4.5 x 1.0 x 2.1 cm Overall Parenchyma: grossly heterogenous Left Lobe: 3.9 x 1.4 x 1.8 cm Overall Parenchyma: grossly heterogeneous Isthmus Thickness: 0.2 cm NODULES RIGHT: # of nodules measured on right: 1. 1.2 x 0.7 x 1.1 cm, mid lower, solid or almost completely solid, hyperechoic nodule, which is w ider than tall, with smooth margins, without echogenic foci. Prior size: 1.2 x 0.7 x 1.1 cm LEFT: # of nodules measured on left: 1. 0.4 X 0.4 x 0.5 cm, mid, solid or almost completely solid, hyperechoic nodule, which is wider th an tall, with smooth margins, without echogenic foci. Prior size: 0.4 x 0.3 x 0.4 cm ISTHMUS: # of nodules measured in the isthmus: 0 Bilateral neck scanned, no evidence of lymphadenopathy. IMPRESSION: Mildly suspicious, consider additional follow-up in 2 years, nodule is essentially stable compared to prior ultrasound. Suspect underlying thyroiditis. 2017 ACR TI-RADS LEVEL: TR 3 *Highest TI-RADS level nodule reported
== END | disposition home or self-care (01) ==
LOC: RADUSWWP 08:52
PROVIDERS: ATTEND Internal Medicine
DX: E04.2 Nontoxic multinodular goiter (principal)
CPT/HCPCS: 76536

== ENCOUNTER 2021-08-07 16:23 | Observation (INO) | payer MEDICARE, OTHER ==
[2021-08-07] MEDS ORDERED: FUROSEMIDE 10 MG/ML 4 ML VIAL IV STA (20:16)
--- NOTE | 2021-08-07 20:23 | ED ---
General Adult HPI - General Source: patient, RN notes reviewed, old records reviewed Mode of arrival: ambulatory Limitations: no limitations <John Feng - Last Filed: 08/07/21 20:58> <John De Jesus - Last Filed: 08/08/21 01:35> - General Chief complaint: Extremity Problem,Nontraumatic Stated complaint: Leg swelling-Sent by Dr. Gustafson Time Seen by Provider: 08/07/21 19:55 - History of Present Illness Initial comments: This is a 51-year-old female who presents emergency Department complaining of bilateral lower leg edema from the inguinal area down. Patient states it started 6 weeks ago. Patient states she started on diuretics but it only helped temporarily. Patient denies any injury. Patient denies any history of clotting. Patient denies any difficulty breathing shortness of breath or chest pain. Patient denies any fever chills or cough per patient denies any redness rashes or lesions. Patient denies any abdominal pain or distention or swelling. Patient states she was on a diuretic for well helped for a few days and then the swelling came back entirely. Patient was also told some of her leg cholesterol. She went to see her primary medical care doctor today and she wanted the patient to be admitted today. (John Feng) - Related Data Home Medications Medication Instructions Recorded Confirmed Amitriptyline HCl [Elavil] 100 mg PO HS 07/04/18 08/07/21 Omeprazole 20 mg PO BID 07/04/18 08/07/21 Baclofen [Lioresal] 20 mg PO TID 09/13/19 08/07/21 Hydrocodone/Acetaminophen [Roundup 1 tab PO TID 09/13/19 08/07/21 7.5-325] Diroximel Fumarate [Vumerity] 462 mg PO BID 11/27/20 08/07/21 Furosemide [Lasix] 20 mg PO DAILY 08/07/21 08/07/21 Levothyroxine Sodium [Unithroid] 75 mcg PO DAILY 08/07/21 08/07/21 Meclizine [Antivert] 25 mg PO BID PRN 08/07/21 08/07/21 OXcarbazepine [Trileptal] 150 mg PO BID 08/07/21 08/07/21 Potassium Chloride ER [K-Dur 20] 20 meq PO DAILY 08/07/21 08/07/21 Allergies Allergy/AdvReac Type Severity Reaction Status Date / Time gabapentin [From Neurontin] Allergy Rash/Hives/Muscle Verified 08/07/21 21:41 Spasms influenza virus vaccine ts Allergy DIFFICULTY Verified 08/07/21 21:41 BREATHING, [From Fluarix] RASH Iodinated Contrast Media Allergy Anaphylaxis Verified 08/07/21 21:41 [Iodinated Contrast Media - IV Dye] levothyroxine sodium Allergy Unknown Verified 08/07/21 21:41 [From Synthroid] magnesium Allergy rash,muscle Verified 08/07/21 21:41 spasms Penicillins Allergy Anaphylaxis Verified 08/07/21 21:41 tizanidine [From Zanaflex] Allergy Rash/Hives/ Verified 08/07/21 21:41 Hallucinati ons Review of Systems ROS Other: All systems not noted in ROS Statement are negative. <John Feng - Last Filed: 08/07/21 20:58> ROS Other: All systems not noted in ROS Statement are negative. <John De Jesus - Last Filed: 08/08/21 01:35> ROS Statement: Those systems with pertinent positive or pertinent negative responses have been documented in the HPI. Past Medical History Past Medical History: Blood Disorder, COPD, Fibromyalgia, GERD/Reflux, Musculoskeletal Disorder, Thyroid Disorder Additional Past Medical History / Comment(s): Chronic, chronic peptic ulcer disease, chronic abdominal pain, COPD, chronic neck pain related to previous neck injury, previous history of perforated gastric ulcer, chronic back pain related to lumbar disc disease, irritable bowel disease, COPD. FIBROMYALGIA,MS. HASHIMOTOS AND HYPOTHYROIDISM. Seroma opatient's back. - September 2018 History of Any Multi-Drug Resistant Organisms: None Reported Past Surgical History: Breast Surgery, Hysterectomy, Orthopedic Surgery, Tubal Ligation Additional Past Surgical History / Comment(s): Breast biopsy, hysterectomy, tubal ligation, stomach surgery for a perforated peptic ulcer, bilateral breast biopsies, right foot surgery, sinus surgery , gastrectomy. Abdominal Pain Pump surgically inserted in July 2018, removal jan 2019 Past Anesthesia/Blood Transfusion Reactions: Previous Problems w/ Anesthesia, Postoperative Nausea & Vomiting (PONV) Additional Past Anesthesia/Blood Transfusion Reaction / Comment(s): RASH from general anesthesia, RECEIVES BENADRYL FOR GENERAL ANESTHESIA. Past Psychological History: Anxiety Smoking Status: Current every day smoker - Past Family History Father Family Medical History: Cancer Additional Family Medical History / Comment(s): lung cancer(inoperable) Brother(s) Family Medical History: Hypertension Mother Family Medical History: No Reported History Additional Family Medical History / Comment(s): bowel blockage and resection done <John Feng - Last Filed: 08/07/21 20:58> General Exam Limitations: no limitations <John Feng - Last Filed: 08/07/21 20:58> - General Exam Comments Initial Comments: GENERAL: Patient is well-developed and well-nourished. Patient is nontoxic and well- hydrated and is in mild distress. ENT: Neck is soft and supple. No significant lymphadenopathy is noted. Oropharynx is clear. Moist mucous membranes. Neck has full range of motion without eliciting any pain. EYES: The sclera were anicteric and conjunctiva were pink and moist. Extraocular movements were intact and pupils were equal round and reactive to light. Eyelids were unremarkable. PULMONARY: Unlabored respirations. Good breath sounds bilaterally. No audible rales rhonchi or wheezing was noted. CARDIOVASCULAR: There is a regular rate and rhythm without any murmurs gallops or rubs. ABDOMEN: Soft and nontender with normal bowel sounds. SKIN: Skin is clear with no lesions or rashes and otherwise unremarkable. NEUROLOGIC: Patient is alert and oriented x3. Cranial nerves II through XII are grossly intact. Motor and sensory are also intact. Normal speech, volume and content. Symmetrical smile. MUSCULOSKELETAL: Normal extremities with adequate strength and full range of motion. 2+ edema bilaterally and legs are tender from the thighs down to the ankles. LYMPHATICS: No significant lymphadenopathy is noted PSYCHIATRIC: Normal psychiatric evaluation. (John Feng) Course Vital Signs 08/07/21 08/07/21 08/08/21 17:25 20:50 00:29 Temperature 98.0 F Pulse Rate 101 H 91 99 Respiratory 18 16 18 Rate Blood Pressure 105/69 122/81 125/84 O2 Sat by Pulse 98 96 98 Oximetry Medical Decision Making <John Feng - Last Filed: 08/07/21 20:58> - Lab Data Result diagrams: 08/07/21 20:40 08/07/21 20:40 <John De Jesus B - Last Filed: 08/08/21 01:35> - Medical Decision Making EKG shows sinus rhythm at 89 bpm MT interval 260 QRS is 89 Q-T intervals 382 QTC is 428. Patient's EKG shows no ST segment elevation or depression. Dr. De Jesus uptake of the care of this patient at 9 PM (John Feng) - Lab Data Lab Results 08/07/21 08/07/21 08/07/21 Range/Units 20:40 20:40 20:40 WBC 5.0 (3.8-10.6) k/uL RBC 3.66 L (3.80-5.40) m/uL Hgb 12.1 (11.4-16.0) gm/dL Hct 38.9 (34.0-46.0) % MCV 106.1 H (80.0-100.0) fL MCH 33.1 (25.0-35.0) pg MCHC 31.2 (31.0-37.0) g/dL RDW 14.8 (11.5-15.5) % Plt Count 278 (150-450) k/uL MPV 7.7 Neutrophils % 80 % Lymphocytes % 10 % Monocytes % 7 % Eosinophils % 1 % Basophils % 1 % Neutrophils # 4.0 (1.3-7.7) k/uL Lymphocytes # 0.5 L (1.0-4.8) k/uL Monocytes # 0.4 (0-1.0) k/uL Eosinophils # 0.0 (0-0.7) k/uL Basophils # 0.0 (0-0.2) k/uL Hypochromasia Slight Macrocytosis Moderate D-Dimer 0.24 (<0.60) mg/L FEU Sodium 135 L (137-145) mmol/L Potassium 3.3 L (3.5-5.1) mmol/L Chloride 108 H (98-107) mmol/L Carbon Dioxide 23 (22-30) mmol/L Anion Gap 4 mmol/L BUN 23 H (7-17) mg/dL Creatinine 0.46 L (0.52-1.04) mg/dL Est GFR (CKD-EPI)AfAm >90 (>60 ml/min/1.73 sqM) Est GFR (CKD-EPI)NonAf >90 (>60 ml/min/1.73 sqM) Glucose 75 (74-99) mg/dL Calcium 7.4 L (8.4-10.2) mg/dL Phosphorus 4.0 (2.5-4.5) mg/dL Magnesium 1.8 (1.6-2.3) mg/dL Total Bilirubin <0.1 L (0.2-1.3) mg/dL AST 37 H (14-36) U/L ALT 31 (4-34) U/L Alkaline Phosphatase 106 (38-126) U/L Troponin I (0.000-0.034) ng/mL NT-Pro-B Natriuret Pep pg/mL Total Protein 3.9 L (6.3-8.2) g/dL Albumin 1.9 L (3.5-5.0) g/dL TSH 8.050 H (0.465-4.680) mIU/L Free T4 0.97 (0.78-2.19) ng/dL 08/07/21 08/07/21 Range/Units 20:40 23:08 WBC (3.8-10.6) k/uL RBC (3.80-5.40) m/uL Hgb (11.4-16.0) gm/dL Hct (34.0-46.0) % MCV (80.0-100.0) fL MCH (25.0-35.0) pg MCHC (31.0-37.0) g/dL RDW (11.5-15.5) % Plt Count (150-450) k/uL MPV Neutrophils % % Lymphocytes % % Monocytes % % Eosinophils % % Basophils % % Neutrophils # (1.3-7.7) k/uL Lymphocytes # (1.0-4.8) k/uL Monocytes # (0-1.0) k/uL Eosinophils # (0-0.7) k/uL Basophils # (0-0.2) k/uL Hypochromasia Macrocytosis D-Dimer (<0.60) mg/L FEU Sodium (137-145) mmol/L Potassium (3.5-5.1) mmol/L Chloride (98-107) mmol/L Carbon Dioxide (22-30) mmol/L Anion Gap mmol/L BUN (7-17) mg/dL Creatinine (0.52-1.04) mg/dL Est GFR (CKD-EPI)AfAm (>60 ml/min/1.73 sqM) Est GFR (CKD-EPI)NonAf (>60 ml/min/1.73 sqM) Glucose (74-99) mg/dL Calcium (8.4-10.2) mg/dL Phosphorus (2.5-4.5) mg/dL Magnesium (1.6-2.3) mg/dL Total Bilirubin (0.2-1.3) mg/dL AST (14-36) U/L ALT (4-34) U/L Alkaline Phosphatase (38-126) U/L Troponin I <0.012 (0.000-0.034) ng/mL NT-Pro-B Natriuret Pep 169 pg/mL Total Protein (6.3-8.2) g/dL Albumin (3.5-5.0) g/dL TSH (0.465-4.680) mIU/L Free T4 (0.78-2.19) ng/dL Disposition <John Feng - Last Filed: 08/07/21 20:58> Is patient prescribed a controlled substance at d/c from ED?: No <John De Jesus - Last Filed: 08/08/21 01:35> Clinical Impression: Abdominal pain, Dehydration, Bilateral leg edema, Hypokalemia, Edema of lower extremity, Malnutrition Disposition: ADMITTED IP TO THIS HOSP Condition: Good Referrals: Malorie Gustafson MD [Primary Care Provider] - 1-2 days
--- NOTE | 2021-08-07 21:10 | XR ---
EXAMINATION TYPE: XR chest 2V DATE OF EXAM: 08/07/2021 8:59 PM COMPARISON: Chest radiographs from 01/09/2019 TECHNIQUE: XR chest 2V Frontal and lateral views of the chest. CLINICAL INDICATION:Female, 51 years old with history of Difficulty breathing ; FINDINGS: Lungs/Pleura: There is no evidence of pleural effusion, focal consolidation, or pneumothorax. Pulmonary vascularity: Unremarkable. Heart/mediastinum: Cardiomediastinal silhouette is unremarkable. Musculoskeletal: No acute osseous pathology. There is fixation hardware in the lower cervical spine. IMPRESSION: No acute cardiopulmonary disease/process.
[2021-08-07] MEDS ORDERED: diphenhydrAMINE 50 MG/ML 1 ML VIAL IVP STA (22:54)
[2021-08-07] MEDS ORDERED: FAMOTIDINE 20 MG/2 ML VIAL IV STA (22:54)
[2021-08-07] MEDS ORDERED: methylPREDNISolone SOD SUCCI 125 MG/2 ML VIAL IV STA (22:54)
[2021-08-07 23:18] LABS: Basophils % (A) 1 %; Eosinophils % (A) 1 %; HCT 38.9 % (34.0-46.0); HGB 12.1 gm/dL (11.4-16.0); Hypochromasia Slight; Lymphocytes # (A) 0.5 k/uL (1.0-4.8); Lymphocytes % (A) 10 %; MCH 33.1 pg (25.0-35.0); MCHC 31.2 g/dL (31.0-37.0); MCV 106.1 fL (80.0-100.0); Macrocytosis Moderate; Mean Platelet Volume 7.7; Monocytes # (A) 0.4 k/uL (0-1.0); Monocytes % (A) 7 %; Neutrophils % (A) 80 %; Platelet Count 278 k/uL (150-450); RBC 3.66 m/uL (3.80-5.40); RDW 14.8 % (11.5-15.5)
[2021-08-07 23:45] LABS: ALT 31 U/L (4-34); AST 37 U/L (14-36); African American GFR (CKD) >90 (>60 ml/min/1.73 sqM); Albumin 1.9 g/dL (3.5-5.0); Alkaline Phosphatase 106 U/L (38-126); Anion Gap 4 mmol/L; Blood Urea Nitrogen 23 mg/dL (7-17); Calcium 7.4 mg/dL (8.4-10.2); Carbon Dioxide 23 mmol/L (22-30); Chloride 108 mmol/L (98-107); Glucose 75 mg/dL (74-99); Magnesium 1.8 mg/dL (1.6-2.3); Non-African American GFR(CKD) >90 (>60 ml/min/1.73 sqM); Potassium 3.3 mmol/L (3.5-5.1); Sodium 135 mmol/L (137-145); Total Bilirubin <0.1 mg/dL (0.2-1.3); Total Protein 3.9 g/dL (6.3-8.2)
[2021-08-08] MEDS ORDERED: POTASSIUM BICARBONATE/CIT AC 20 MEQ TABLET.EFF PO ONE (00:04)
[2021-08-08] MEDS ORDERED: MORPHINE SULFATE 4 MG/ML SYRINGE IVP STA (00:21)
--- NOTE | 2021-08-08 00:25 | US ---
EXAMINATION TYPE: US venous doppler duplex LE DATE OF EXAM: 08/07/2021 10:55 PM COMPARISON: US 2016 CLINICAL HISTORY: dvt. Bilateral leg pain x 6 weeks SIDE PERFORMED: Bilateral TECHNIQUE: The lower extremity deep venous system is examined utilizing real time linear array sonog kaz with graded compression, doppler sonography and color-flow sonography. VESSELS IMAGED: Common Femoral Vein Deep Femoral Vein Greater Saphenous Vein * Femoral Vein Popliteal Vein Small Saphenous Vein * Proximal Calf Veins (* superficial vessels) Right Leg: Appears negative for DVT Left Leg: Appears negative for DVT IMPRESSION: No evidence of deep vein thrombosis in the legs.
--- NOTE | 2021-08-08 01:04 | CT ---
EXAMINATION TYPE: CT brain wo con DATE OF EXAM: 08/08/2021 COMPARISON: None HISTORY: HEADACHE CT DLP: 1044.4 mGycm Automated exposure control for dose reduction was used. Ventricles of normal size. There is no mass effect or midline shift. There is no sign of intracranial hemorrhage. Calvarium is intact. There is normal aeration of the mastoid sinuses. IMPRESSION: Negative unenhanced head CT scan.
[2021-08-08 01:07] LABS: T4, Free (Free Thyroxine) 0.97 ng/dL (0.78-2.19)
--- NOTE | 2021-08-08 01:30 | CT ---
EXAMINATION TYPE: CT ChestAbdPelvis wo con DATE OF EXAM: 08/08/2021 COMPARISON: CT abdomen and pelvis 09/12/2019 HISTORY: leg swelling. rule out mass. CT DLP: 409.7 mGycm Automated exposure control for dose reduction was used. Images obtained from the thoracic inlet through the floor of the pelvis with no contrast. FINDINGS: There is some mild reticular nodular infiltrate in the anterior left upper lobe. The other lung field s are clear. Heart size is normal. No pericardial effusion. No mediastinal adenopathy. There are no h ilar masses. Heart size is normal. Liver spleen appear intact. There is previous gastric surgery. There is no pancreatic mass. Gallbladd er appears normal. The bile ducts are not dilated. There is no adrenal mass. Kidneys show normal size and contour. There is no hydronephrosis. Ureters a re not dilated. There is dilated small bowel in the mid abdomen. There are multiple rounded densities in the abdomen that could be calcium tablets. These measure 10 mm in length. There surgical clips in the small bowel in the mid abdomen. I do not see evidence for a mechanical bowel obstruction. There is loop of small bowel measuring 3.5 cm with numerous surgical clips in the mid abdomen. The bladder distends smoothly. No pelvic mass. No inguinal hernia. No free fluid in the pelvis. There is some subcutaneou s edema around the lower pelvis. Appendix appears normal. IMPRESSION: Previous gastric and bowel surgery. I do not suspect bowel obstruction. There is new subcutaneous edema around the lower abdomen and pelvis compared to old exam. There is a small infiltrate in the left anterior left upper lobe.
[2021-08-08] MEDS ORDERED: NALOXONE 0.4 MG/ML 1 ML VIAL IV PRN (01:32)
[2021-08-08] MEDS: MORPHINE SULFATE 4 MG/ML SYRINGE IVP PRN ×2 (04:29→09:30)
[2021-08-08] MEDS ORDERED: FUROSEMIDE 10 MG/ML 4 ML VIAL IV SCH (09:00)
[2021-08-08] MEDS ORDERED: MECLIZINE 25 MG TAB PO PRN (11:53)
[2021-08-08] MEDS ORDERED: LEVOTHYROXINE 75 MCG TAB PO SCH (12:00)
[2021-08-08] MEDS: HYDROcodone/APAP 7.5-325MG 1 EACH TAB PO SCH ×3 (12:50→22:02)
[2021-08-08] MEDS: OXcarbazepine 150 MG TAB PO SCH ×2 (12:50→20:41)
[2021-08-08] MEDS: PANTOPRAZOLE 40 MG TABLET PO SCH (12:51)
[2021-08-08] MEDS: DIROXIMEL FUMARATE 231 MG PO SCH ×2 (12:51→22:01)
--- NOTE | 2021-08-08 13:23 | P.HPIM ---
History of Present Illness H&P Date: 08/08/21 This is a pleasant 51 year old female who presents with bilateral lower extremity edema from the inguinal area down. This has been going for the last 6 weeks, and was started on diuretics which have not helped much. She denies fever, chills. Denies cough or shortness of breath. Denies chest pain. Past medical history includes COPD, fibromyalgia, GERD, chronic peptic ulcer disease with perforated ulcer in the past, irritable bowel, chronic back pain, hypothyroidism with Hoshimotos. She also has chronic iron deficiency anemia and receives iron transfusions every [address] Ferris. She is a 1/2 pack per day smoker, denies drinking, illicit drug use. There is also reported dry cough with nasal congestion onset last tuesday. She describes the pain as burning and is intense. She denies history of heart failure, no history of DVT or PE. There are positive pedal pulses, we will add lyrica for pain control and consult vascular services for further evaluation. Change lasix to oral. Diagnostics include Venous doppler negative for bilateral acute DVT Chest xray negative for acute cardiopulmonary disease Brain CT negative for acute findings Abd/Pelvis CT showing small infiltrate left anterior upper lobe, previous history of gastric and bowel surgery with no evidence for obstruction. There is new subcutaneous edema around the lower abdomen and pelvis. Labs showing white count 5.0, sodium 135, potassium 3.3., calcium 7.4, AST 37, troponin negative, BNP 169, albumin 1.9, TSH 8.050, T4 0.97 Blood pressure 118/78, heart rate 101, afebrile, 98% on room air. REVIEW OF SYSTEMS: CONSTITUTIONAL: No fever, no malaise, no fatigue. HEENT: No recent visual problems or hearing problems. Denied any sore throat. CARDIOVASCULAR: No chest pain, orthopnea, PND, no palpitations, no syncope. PULMONARY: Reports cough, congested, no sputum production no shortness of breath. GASTROINTESTINAL: No diarrhea, no nausea, no vomiting, no abdominal pain. NEUROLOGICAL: No headaches, no weakness, no numbness. HEMATOLOGICAL: Denies any bleeding or petechiae. GENITOURINARY: Denies any burning micturition, frequency, or urgency. MUSCULOSKELETAL/RHEUMATOLOGICAL: Report lower extremity pain and swelling from top of leg down and describes as burning. ENDOCRINE: Denies any polyuria or polydipsia. The rest of the 14-point review of systems is negative. PHYSICAL EXAMINATION: GENERAL: The patient is alert and oriented x3, not in any acute distress. Well developed, well nourished. HEENT: Pupils are round and equally reacting to light. EOMI. No scleral icterus. No conjunctival pallor. Normocephalic, atraumatic. No pharyngeal erythema. No thyromegaly. CARDIOVASCULAR: S1 and S2 present. No murmurs, rubs, or gallops. PULMONARY: Chest is clear to auscultation, no wheezing or crackles. ABDOMEN: Soft, nontender, nondistended, normoactive bowel sounds. No palpable organomegaly. MUSCULOSKELETAL: No joint swelling or deformity. EXTREMITIES: No cyanosis, clubbing. +1 bilateral lower extremity peripheral edema, tender to touch. +2 pulses, NEUROLOGICAL: Gross neurological examination did not reveal any focal deficits. SKIN: No rashes. Assessment and Plan Assessment Bilateral lower extremity peripheral edema most likely from peripheral vascular insufficiency Peripheral neuropathy secondary to vascular insufficiency History of COPD with mild acute exacerbation from bronchitis Hyponatremia from diuresis Hypokalemia from diuresis Hypoalbuminemia Hypothyroidism with TSH 8.050 Fibromyalgia Irritable bowel syndrome History of gastric ulcer with perforation secondary to surgical repair History of iron deficiency anemia with transfusions outpatient Chronic daily nicotine use GI prophylaxis ppi DVT prophylaxis sub cu heparin Full Code Plan Start lyrica; patient does have allergy to gabapentin she is agreeable to try lyrica and monitor for signs of allergic reaction while in hospital setting Consult vascular surgery Resume appropriate home medication Replace potassium Lasix to oral Monitor daily weight Repeat labs in AM The impression and plan of care has been dictated by Mignon Colindres Nurse Pr actitioner as directed. Dr. Liz MD I have performed a history and physical examination and medical decision making of this patient, discussed the same with the dictator, and agree with the dicta tors assessment and plan as written, documented as a scribe. Based on total visit time, I have performed more than 50% of this visit. Past Medical History Past Medical History: Blood Disorder, COPD, Fibromyalgia, GERD/Reflux, Musculoskeletal Disorder, Thyroid Disorder Additional Past Medical History / Comment(s): Chronic, chronic peptic ulcer disease, chronic abdominal pain, COPD, chronic neck pain related to previous neck injury, previous history of perforated gastric ulcer, chronic back pain related to lumbar disc disease, irritable bowel disease, COPD. FIBROMYALGIA,MS. HASHIMOTOS AND HYPOTHYROIDISM. Seroma opatient's back. - September 2018 History of Any Multi-Drug Resistant Organisms: None Reported Past Surgical History: Breast Surgery, Hysterectomy, Orthopedic Surgery, Tubal Ligation Additional Past Surgical History / Comment(s): Breast biopsy, hysterectomy, tubal ligation, stomach surgery for a perforated peptic ulcer, bilateral breast biopsies, right foot surgery, sinus surgery , gastrectomy. Abdominal Pain Pump surgically inserted in July 2018, removal jan 2019 Past Anesthesia/Blood Transfusion Reactions: Previous Problems w/ Anesthesia, Postoperative Nausea & Vomiting (PONV) Additional Past Anesthesia/Blood Transfusion Reaction / Comment(s): RASH from general anesthesia, RECEIVES BENADRYL FOR GENERAL ANESTHESIA. Past Psychological History: Anxiety Smoking Status: Current every day smoker Past Alcohol Use History: Rare Additional Past Alcohol Use History / Comment(s): SMOKES 1/2 PPD. STARTED SMOKING AGE 11. Past Drug Use History: None Reported - Past Family History Father Family Medical History: Cancer Additional Family Medical History / Comment(s): lung cancer(inoperable) Brother(s) Family Medical History: Hypertension Mother Family Medical History: No Reported History Additional Family Medical History / Comment(s): bowel blockage and resection done Medications and Allergies Home Medications Medication Instructions Recorded Confirmed Type Amitriptyline HCl [Elavil] 100 mg PO HS 07/04/18 08/07/21 History Omeprazole 20 mg PO BID 07/04/18 08/07/21 History Baclofen [Lioresal] 20 mg PO TID 09/13/19 08/07/21 History Hydrocodone/Acetaminophen [Olla 1 tab PO TID 09/13/19 08/07/21 History 7.5-325] Diroximel Fumarate [Vumerity] 462 mg PO BID 11/27/20 08/07/21 History Furosemide [Lasix] 20 mg PO DAILY 08/07/21 08/07/21 History Levothyroxine Sodium [Unithroid] 75 mcg PO DAILY 08/07/21 08/07/21 History Meclizine [Antivert] 25 mg PO BID PRN 08/07/21 08/07/21 History OXcarbazepine [Trileptal] 150 mg PO BID 08/07/21 08/07/21 History Potassium Chloride ER [K-Dur 20] 20 meq PO DAILY 08/07/21 08/07/21 History Allergies Allergy/AdvReac Type Severity Reaction Status Date / Time gabapentin [From Neurontin] Allergy Rash/Hives/Muscle Verified 08/07/21 21:41 Spasms influenza virus vaccine ts Allergy DIFFICULTY Verified 08/07/21 21:41 BREATHING, [From Fluarix] RASH Iodinated Contrast Media Allergy Anaphylaxis Verified 08/07/21 21:41 [Iodinated Contrast Media - IV Dye] levothyroxine sodium Allergy Unknown Verified 08/07/21 21:41 [From Synthroid] magnesium Allergy rash,muscle Verified 08/07/21 21:41 spasms Penicillins Allergy Anaphylaxis Verified 08/07/21 21:41 tizanidine [From Zanaflex] Allergy Rash/Hives/ Verified 08/07/21 21:41 Hallucinati ons Physical Exam Vitals: Vital Signs Temp Pulse Pulse Resp BP BP Pulse Ox 08/08/21 07:00 98.0 F 101 H 18 118/78 98 08/08/21 03:45 98.2 F 91 18 114/76 97 08/08/21 00:29 99 18 125/84 98 08/07/21 20:50 91 16 122/81 96 08/07/21 17:25 98.0 F 101 H 18 105/69 98 Intake and Output 08/07/21 08/08/21 08/08/21 22:59 06:59 14:59 Intake Total 120 Balance 120 Intake: Oral 120 Other: # Voids 1 Weight 52.163 kg 52.163 kg Results CBC & Chem 7: 08/07/21 20:40 08/07/21 20:40 Labs: Abnormal Lab Results - Last 24 Hours (Table) 08/07/21 08/07/21 Range/Units 20:40 20:40 RBC 3.66 L (3.80-5.40) m/uL MCV 106.1 H (80.0-100.0) fL Lymphocytes # 0.5 L (1.0-4.8) k/uL Sodium 135 L (137-145) mmol/L Potassium 3.3 L (3.5-5.1) mmol/L Chloride 108 H (98-107) mmol/L BUN 23 H (7-17) mg/dL Creatinine 0.46 L (0.52-1.04) mg/dL Calcium 7.4 L (8.4-10.2) mg/dL Total Bilirubin <0.1 L (0.2-1.3) mg/dL AST 37 H (14-36) U/L Total Protein 3.9 L (6.3-8.2) g/dL Albumin 1.9 L (3.5-5.0) g/dL TSH 8.050 H (0.465-4.680) mIU/L Thrombosis Risk Factor Assmnt - Choose All That Apply Each Factor Represents 1 point: Age 41-60 years, Swollen legs (current) Other Risk Factors: No Other congenital or acquired thrombophilia - If yes, enter type in comment: No Thrombosis Risk Factor Assessment Total Risk Factor Score: 2 Thrombosis Risk Factor Assessment Level: Low Risk Assessment and Plan Time with Patient: Greater than 30
[2021-08-08] MEDS: PREGABALIN 100 MG CAP PO SCH ×2 (14:32→20:40)
[2021-08-08] MEDS: BACLOFEN 10 MG TAB PO SCH ×2 (16:42→22:03)
[2021-08-08] MEDS: HEPARIN SODIUM,PORCINE/PF 5,000 UNIT/0.5 ML SYRINGE SQ SCH (20:40)
[2021-08-08] MEDS ORDERED: AMITRIPTYLINE HCL 50 MG TAB PO SCH (21:00)
[2021-08-08] MEDS ORDERED: BENZOCAINE/MENTHOL LOZENG 1 EACH LOZENGE MUCOUS MEM PRN (21:04)
[2021-08-08] MEDS ORDERED: guaiFENesin SYRUP 100MG/5ML 200 MG/10 ML CUP PO PRN (21:04)
[2021-08-09 07:37] VITALS: PULSE 86
[2021-08-09] MEDS: DIROXIMEL FUMARATE 231 MG PO SCH (08:50)
[2021-08-09] MEDS: PANTOPRAZOLE 40 MG TABLET PO SCH (08:50)
[2021-08-09] MEDS: HEPARIN SODIUM,PORCINE/PF 5,000 UNIT/0.5 ML SYRINGE SQ SCH (08:50)
[2021-08-09] MEDS: HYDROcodone/APAP 7.5-325MG 1 EACH TAB PO SCH ×2 (08:51→16:49)
[2021-08-09] MEDS: BACLOFEN 10 MG TAB PO SCH ×2 (08:51→16:49)
[2021-08-09] MEDS: OXcarbazepine 150 MG TAB PO SCH (08:52)
[2021-08-09] MEDS: PREGABALIN 100 MG CAP PO SCH (08:52)
[2021-08-09] MEDS ORDERED: FUROSEMIDE 40 MG TAB PO SCH (09:00)
[2021-08-09 11:47] LABS: Basophils # (A) 0.01 X 10*3/uL (0.00-0.10); Basophils % (A) 0.3 %; Eosinophils # (A) 0.04 X 10*3/uL (0.04-0.35); Eosinophils % (A) 1.1 %; HCT 35.7 % (37.2-46.3); HGB 11.4 g/dL (12.0-15.0); Immature Grans, Automated 0.6 %; Lymphocytes # (A) 0.41 X 10*3/uL (0.90-5.00); Lymphocytes % (A) 11.3 %; MCH 33.1 pg (27.0-32.0); MCHC 31.9 g/dL (32.0-37.0); MCV 103.8 fL (80.0-97.0); Mean Platelet Volume 9.7 fL (9.5-12.2); Monocytes # (A) 0.27 X 10*3/uL (0.20-1.00); Monocytes % (A) 7.4 %; NRBC Per 100 WBC 0 /100 WBCS (0.0-0.0); Neutrophils # (A) 2.88 X 10*3/uL (1.80-7.70); Neutrophils % (A) 79.3 %; Platelet Count 204 X 10*3/uL (140-440); RBC 3.44 X 10*6/uL (4.10-5.20); RDW 15.7 % (11.5-14.5); WBC 3.63 X 10*3/uL (4.50-10.00)
[2021-08-09 11:54] LABS: ALT 28 U/L (8-44); AST 29 U/L (13-35); African American GFR (CKD) 147.7 (60.0-200.0); Albumin 1.8 g/dL (3.8-4.9); Albumin/Globulin Ratio 1.26 (1.60-3.17); Alkaline Phosphatase 108 U/L (41-126); Blood Urea Nitrogen 16.9 mg/dL (9.0-27.0); Calcium 7.3 mg/dL (8.7-10.3); Carbon Dioxide 26.2 mmol/L (20.0-27.5); Chloride 106 mmol/L (96-109); Globulin 1.5 g/dL (1.6-3.3); Glucose 83 mg/dL (70-110); Magnesium 1.6 mg/dL (1.5-2.4); Non-African American GFR(CKD) 127.5 (60.0-200.0); Phosphorus 3.3 mg/dL (2.4-5.1); Potassium 3.7 mmol/L (3.5-5.5); Sodium 140 mmol/L (135-145); Total Bilirubin <0.15 mg/dL (0.30-1.20); Total Protein 3.3 g/dL (6.2-8.2)
[2021-08-09] MEDS ORDERED: LEVOTHYROXINE 100 MCG TAB PO SCH (12:15)
[2021-08-09] MEDS ORDERED: POTASSIUM CHLORIDE ER 20 MEQ TAB.ER PO STA (13:12)
--- NOTE | 2021-08-09 14:35 | P.DS ---
Providers Date of admission: 08/08/21 01:32 Attending physician: Ney Doss Consults: 08/08/21 13:11 Consult Physician Routine Consulting Provider: Brayden Gusman Consult Reason/Comments: peripheral vascular insufficiency Do you want consulting provider notified?: Yes Primary care physician: Malorie [facility] Course: Final Diagnosis Bilateral lower extremity peripheral edema most likely from peripheral vascular insufficiency Peripheral neuropathy secondary to vascular insufficiency History of COPD with mild acute exacerbation from bronchitis Hyponatremia from diuresis Hypokalemia from diuresis Hypoalbuminemia Hypothyroidism with TSH 8.050 Fibromyalgia Irritable bowel syndrome History of gastric ulcer with perforation secondary to surgical repair History of iron deficiency anemia with transfusions outpatient Chronic daily nicotine use Full Code Discharge Disposition Patient is discharged in stable condition and will continue on lyrica BID. Follow up with primary are in 2-3 days. Follow up with vascular services outpatient. Continue on same dose of unithroid and follow up with Dr Hanna as scheduled. Hospital Course This is a pleasant 51-year-old female with history of COPD, fibromyalgia, GERD, chronic peptic ulcer disease with perforated ulcer in the past, IBS, chronic pain, hypothyroidism with Tony's, chronic iron deficiency anemia. Patient presents with bilateral lower extremity edema the inguinal area down, she underwent bilateral Doppler scan which was negative for acute DVT in both legs. Edema is +1 pitting and patient describes the pain as burning mostly neuropathic pain. She does state that she has suffered with neuropathy in the past. She was evaluated by her primary care last week and was started on Lasix tablets with minimal improvement. Patient presents to the for further evaluation of lower extremity edema. She was started on IV Lasix and was transitioned to oral Lasix, overall her weight is down. Ankle edema has improved as well as thigh edema. She now has just minimal +1 nonpitting edema remaining. She was also started on Lyrica twice a day for the neuropathic pain and patient reports that it is improving. She had also developed a cough with some nasal congestion outpatient, she is Covid negative. She'll be given an albuterol inhaler to use as needed and continues [id number] cough syrup. Patient does follow with Dr Hanna outpatient for hypothyroid, she states her TSH was 14, 3 weeks ago her thyroid medication was increased from 50 up to 75. TSH was found to be 8 this admission. We will continue the increased dose of 75 mcg unithroid and she will follow up outpatient for this. Diagnostics this admission include Venous Doppler negative for acute bilateral DVT Chest x-ray negative for active cardiopulmonary disease Brain CT negative for acute findings Abdominal pelvis CT showing infiltrate left anterior upper lobe which is new and small, previous history of gastric and bowel surgery with no evidence for obstruction. There is new subcutaneous edema on the lower abdomen and pelvis. Labs showing white count 5.0 on admission, sodium 135, potassium 3.3, calcium 7.4, AST 37, troponin negative. BNP 169, TSH 8.050. 08/09/2021 Patient evaluated today and overall her pain is improving. She would like to be discharge home. No acute events overnight. She is having some cough and was given robitussin and cough drops. She is also sent an albuterol inhaler on discharge as well. She is pending consult for vascular services, she can follow up outpatient with them as well. Lasix increased to 40 mg po daily. She denies chest pain, denies shortness of breath, denies abdominal pain, denies nausea, vomiting or diarrhea. Lungs are clear, S1 S2 auscultated, abdomen is soft and nontender. Focal neurological exam is negative. Vitals are stable today. Blood pressure, 121/83, heart rate 86, 96% on room air, afebrile. Potassium has improved to 3.7 and she will discharge on 20 meq of potassium daily. Follow up BMP outpatient in 2-3 days. Please see medication reconciliation for a list of current medication. Thank you for allowing us to participate in the care of this patient. The impression and plan of care has been dictated by Mignon Colindres, Nurse Practitioner as directed. Dr. Liz MD I have performed a history and physical examination and medical decision making of this patient, discussed the same with the dictator, and agree with the dictators assessment and plan as written, documented as a scribe. Based on total visit time, I have performed more than 50% of this visit. Patient Condition at Discharge: Good Plan - Discharge Summary Discharge Rx Participant: No New Discharge Prescriptions: New Furosemide [Lasix] 40 mg PO DAILY #30 tab Albuterol Inhaler [Ventolin Hfa Inhaler] 1 puff INHALATION RT-QID PRN #8 gm PRN Reason: Shortness Of Breath Or Wheezing Benzocaine/Menthol Lozeng [Cepacol lozenge] 1 each MUCOUS MEM Q4HR PRN lozenge PRN Reason: Cough Pregabalin [Lyrica] 100 mg PO BID 3 Days #6 cap guaiFENesin SYRUP 100MG/5ML [Robitussin] 200 mg PO Q6HR PRN ml PRN Reason: Cough Levothyroxine Sodium [Unithroid] 75 mcg PO DAILY #30 tablet Potassium Chloride ER [K-Dur 20] 20 meq PO DAILY #30 tab Continue Omeprazole 20 mg PO BID Amitriptyline HCl [Elavil] 100 mg PO HS Baclofen [Lioresal] 20 mg PO TID Hydrocodone/Acetaminophen [[place] 7.5-325] 1 tab PO TID OXcarbazepine [Trileptal] 150 mg PO BID Meclizine [Antivert] 25 mg PO BID PRN PRN Reason: Vertigo Potassium Chloride ER [K-Dur 20] 20 meq PO DAILY Diroximel Fumarate [Vumerity] 462 mg PO BID Discontinued Levothyroxine Sodium [Unithroid] 75 mcg PO DAILY Furosemide [Lasix] 20 mg PO DAILY Discharge Medication List Amitriptyline HCl [Elavil] 100 mg PO HS 07/04/18 [History] Omeprazole 20 mg PO BID 07/04/18 [History] Baclofen [Lioresal] 20 mg PO TID 09/13/19 [History] Hydrocodone/Acetaminophen [[place] 7.5-325] 1 tab PO TID 09/13/19 [History] Diroximel Fumarate [Vumerity] 462 mg PO BID 11/27/20 [History] Meclizine [Antivert] 25 mg PO BID PRN 08/07/21 [History] OXcarbazepine [Trileptal] 150 mg PO BID 08/07/21 [History] Potassium Chloride ER [K-Dur 20] 20 meq PO DAILY 08/07/21 [History] Albuterol Inhaler [Ventolin Hfa Inhaler] 1 puff INHALATION RT-QID PRN #8 gm 08/09/21 [Rx] Benzocaine/Menthol Lozeng [Cepacol lozenge] 1 each MUCOUS MEM Q4HR PRN lozenge 08/09/21 [Rx] Furosemide [Lasix] 40 mg PO DAILY #30 tab 08/09/21 [Rx] Levothyroxine Sodium [Unithroid] 75 mcg PO DAILY #30 tablet 08/09/21 [Rx] Potassium Chloride ER [K-Dur 20] 20 meq PO DAILY #30 tab 08/09/21 [Rx] Pregabalin [Lyrica] 100 mg PO BID 3 Days #6 cap 08/09/21 [Rx] guaiFENesin SYRUP 100MG/5ML [Robitussin] 200 mg PO Q6HR PRN ml 08/09/21 [Rx] Follow up Appointment(s)/Referral(s): Malorie Gustafson MD [Primary Care Provider] - 1-2 days Fawad Hanna MD [REFERRING] - 1 Week Ambulatory/Diagnostic Orders: Basic Metabolic Panel [LAB.AMB] Time Frame: 2 Days, Location: None Selected Activity/Diet/Wound Care/Special Instructions: Check weight daily in the morning and keep log for follow up at PCP Monitor for 2-3 lb weight gain over night of 5 to 7 lbs in 1 week. Continue on same dose of thyroid medication with Unithroid and follow up with Dr Hanna as scheduled TSH this admission 8.050, T4 0.97. Unithroid was increased to 75 mcg daily from 50 mcg daily 3 weeks ago for a TSH of 14 Continue on lyrica for neuropathic pain Follow up with primary care by Tuesday to discuss improvement in pain Discharge Disposition: HOME SELF-CARE
[2021-08-09 15:26] VITALS: BP 115/76; RESP 16; TEMP 98.5
--- NOTE | 2021-08-09 17:25 | P.GSCN ---
History of Present Illness Consult date: 08/09/21 Reason for Consult: vascular insufficiency History of present illness: 51 year old female who presents with bilateral lower extremity edema from the inguinal area down onset 6 weeks ago and patient states no changes or improvements over that time. She states since she was admitted her swelling has improved with elevation. She states the swelling causes pain at the bottom of her feet. She was seen in the primary care office and instructed to wear compression stockings which she was unable to get as of yet prior to coming to the ER. She denies fever, chills. Denies cough or shortness of breath. Denies chest pain. She has had venous doppler which was negative for DVT as well as an abdominal CT which was negative for any mass or obstruction of the venous system. Review of Systems All systems: negative (what is mentioned in the HPI or PMH) Past Medical History Past Medical History: Blood Disorder, COPD, Fibromyalgia, GERD/Reflux, Musculoskeletal Disorder, Thyroid Disorder Additional Past Medical History / Comment(s): Chronic, chronic peptic ulcer disease, chronic abdominal pain, COPD, chronic neck pain related to previous neck injury, previous history of perforated gastric ulcer, chronic back pain related to lumbar disc disease, irritable bowel disease, COPD. FIBROMYALGIA,MS. HASHIMOTOS AND HYPOTHYROIDISM. Seroma opatient's back. - September 2018 History of Any Multi-Drug Resistant Organisms: None Reported Past Surgical History: Breast Surgery, Hysterectomy, Orthopedic Surgery, Tubal Ligation Additional Past Surgical History / Comment(s): Breast biopsy, hysterectomy, tubal ligation, stomach surgery for a perforated peptic ulcer, bilateral breast biopsies, right foot surgery, sinus surgery , gastrectomy. Abdominal Pain Pump surgically inserted in July 2018, removal jan 2019 Past Anesthesia/Blood Transfusion Reactions: Previous Problems w/ Anesthesia, Postoperative Nausea & Vomiting (PONV) Additional Past Anesthesia/Blood Transfusion Reaction / Comm: RASH from general anesthesia, RECEIVES BENADRYL FOR GENERAL ANESTHESIA. Past Psychological History: Anxiety Smoking Status: Current every day smoker Past Alcohol Use History: Rare Additional Past Alcohol Use History / Comment(s): SMOKES 1/2 PPD. STARTED SMOKING AGE 11. Past Drug Use History: None Reported - Past Family History Father Family Medical History: Cancer Additional Family Medical History / Comment(s): lung cancer(inoperable) Brother(s) Family Medical History: Hypertension Mother Family Medical History: No Reported History Additional Family Medical History / Comment(s): bowel blockage and resection done Medications and Allergies Home Medications Medication Instructions Recorded Confirmed Type Amitriptyline HCl [Elavil] 100 mg PO HS 07/04/18 08/07/21 History Omeprazole 20 mg PO BID 07/04/18 08/07/21 History Baclofen [Lioresal] 20 mg PO TID 09/13/19 08/07/21 History Hydrocodone/Acetaminophen [[place] 1 tab PO TID 09/13/19 08/07/21 History 7.5-325] Diroximel Fumarate [Vumerity] 462 mg PO BID 11/27/20 08/07/21 History Meclizine [Antivert] 25 mg PO BID PRN 08/07/21 08/07/21 History OXcarbazepine [Trileptal] 150 mg PO BID 08/07/21 08/07/21 History Potassium Chloride ER [K-Dur 20] 20 meq PO DAILY 08/07/21 08/07/21 History Albuterol Inhaler [Ventolin Hfa 1 puff INHALATION RT-QID PRN #8 gm 08/09/21 Rx Inhaler] Benzocaine/Menthol Lozeng [Cepacol 1 each MUCOUS MEM Q4HR PRN lozenge 08/09/21 Rx lozenge] Furosemide [Lasix] 40 mg PO DAILY #30 tab 08/09/21 Rx Levothyroxine Sodium [Unithroid] 75 mcg PO DAILY #30 tablet 08/09/21 Rx Potassium Chloride ER [K-Dur 20] 20 meq PO DAILY #30 tab 08/09/21 Rx Pregabalin [Lyrica] 100 mg PO BID 3 Days #6 cap 08/09/21 Rx guaiFENesin SYRUP 100MG/5ML 200 mg PO Q6HR PRN ml 08/09/21 Rx [Robitussin] Allergies Allergy/AdvReac Type Severity Reaction Status Date / Time gabapentin [From Neurontin] Allergy Rash/Hives/Muscle Verified 08/07/21 21:41 Spasms influenza virus vaccine ts Allergy DIFFICULTY Verified 08/07/21 21:41 BREATHING, [From Fluarix] RASH Iodinated Contrast Media Allergy Anaphylaxis Verified 08/07/21 21:41 [Iodinated Contrast Media - IV Dye] levothyroxine sodium Allergy Unknown Verified 08/07/21 21:41 [From Synthroid] magnesium Allergy rash,muscle Verified 08/07/21 21:41 spasms Penicillins Allergy Anaphylaxis Verified 08/07/21 21:41 tizanidine [From Zanaflex] Allergy Rash/Hives/ Verified 08/07/21 21:41 Hallucinati ons Surgical - Exam Vital Signs Temp Pulse Resp BP Pulse Ox 98.0 F 101 H 18 105/69 98 08/07/21 17:25 08/07/21 17:25 08/07/21 17:25 08/07/21 17:25 08/07/21 17:25 2+ edema bilateral lower extremities, worse in the foot area. +TTP plantar aspect of both feet. Palpable dp and pt pulses bilaterally and good capillary refill. - General well developed, well nourished, no distress - Eyes PERRL, normal ocular movement - ENT normal pinna, normal nares - Neck no masses - Respiratory normal expansion, normal respiratory effort - Cardiovascular Rhythm: regular - Abdomen Abdomen: soft, non tender - Integumentary no rash, no growths - Neurologic normal sensation, no disoriented, no confused - Psychiatric oriented to time, oriented to person, oriented to place, speech is normal Results - Labs 08/09/21 07:23 08/09/21 07:23 Abnormal Lab Results - Last 24 Hours (Table) 08/09/21 08/09/21 Range/Units 07:23 07:23 WBC 3.63 L (4.50-10.00) X 10*3/uL RBC 3.44 L (4.10-5.20) X 10*6/uL Hgb 11.4 L (12.0-15.0) g/dL Hct 35.7 L (37.2-46.3) % MCV 103.8 H (80.0-97.0) fL MCH 33.1 H (27.0-32.0) pg MCHC 31.9 L (32.0-37.0) g/dL RDW 15.7 H (11.5-14.5) % Lymphocytes # 0.41 L (0.90-5.00) X 10*3/uL Anion Gap 8.00 L (10.00-18.00) mmol/L Creatinine 0.3 L (0.6-1.5) mg/dL BUN/Creatinine Ratio 50.00 H (12.00-20.00) Ratio Calcium 7.3 L (8.7-10.3) mg/dL Total Bilirubin <0.15 L (0.30-1.20) mg/dL Total Protein 3.3 L (6.2-8.2) g/dL Albumin 1.8 L (3.8-4.9) g/dL Globulin 1.5 L (1.6-3.3) g/dL Albumin/Globulin Ratio 1.26 L (1.60-3.17) g/dL Diabetes panel 08/09/21 Range/Units 07:23 Sodium 140 (135-145) mmol/L Potassium 3.7 (3.5-5.5) mmol/L Chloride 106 (96-109) mmol/L Carbon Dioxide 26.2 (20.0-27.5) mmol/L BUN 16.9 (9.0-27.0) mg/dL Creatinine 0.3 L (0.6-1.5) mg/dL Glucose 83 (70-110) mg/dL Calcium 7.3 L (8.7-10.3) mg/dL AST 29 (13-35) U/L ALT 28 (8-44) U/L Alkaline Phosphatase 108 (41-126) U/L Total Protein 3.3 L (6.2-8.2) g/dL Albumin 1.8 L (3.8-4.9) g/dL Calcium panel 08/09/21 Range/Units 07:23 Calcium 7.3 L (8.7-10.3) mg/dL Phosphorus 3.3 (2.4-5.1) mg/dL Albumin 1.8 L (3.8-4.9) g/dL Pituitary panel 08/09/21 Range/Units 07:23 Sodium 140 (135-145) mmol/L Potassium 3.7 (3.5-5.5) mmol/L Chloride 106 (96-109) mmol/L Carbon Dioxide 26.2 (20.0-27.5) mmol/L BUN 16.9 (9.0-27.0) mg/dL Creatinine 0.3 L (0.6-1.5) mg/dL Glucose 83 (70-110) mg/dL Calcium 7.3 L (8.7-10.3) mg/dL Adrenal panel 08/09/21 Range/Units 07:23 Sodium 140 (135-145) mmol/L Potassium 3.7 (3.5-5.5) mmol/L Chloride 106 (96-109) mmol/L Carbon Dioxide 26.2 (20.0-27.5) mmol/L BUN 16.9 (9.0-27.0) mg/dL Creatinine 0.3 L (0.6-1.5) mg/dL Glucose 83 (70-110) mg/dL Calcium 7.3 L (8.7-10.3) mg/dL Total Bilirubin <0.15 L (0.30-1.20) mg/dL AST 29 (13-35) U/L ALT 28 (8-44) U/L Alkaline Phosphatase 108 (41-126) U/L Total Protein 3.3 L (6.2-8.2) g/dL Albumin 1.8 L (3.8-4.9) g/dL Assessment and Plan Assessment: Bilateral lower extremity peripheral edema most likely from peripheral vascular insufficiency Peripheral neuropathy secondary to vascular insufficiency History of COPD with mild acute exacerbation from bronchitis Hypoalbuminemia Hypothyroidism Fibromyalgia Irritable bowel syndrome History of gastric ulcer with perforation secondary to surgical repair History of iron deficiency anemia with transfusions outpatient Chronic daily nicotine use Plan: Reviewed imaging with the patient in full detail. Recommend elevation and compression therapy. She will need at least 20mmHg of compression daily. We will see her in the office for formal ultrasound to determine severity of reflux disease. No other surgical intervention while in the hospital. Thank you for the consult.
== END 2021-08-09 17:53 | disposition home or self-care (01) ==
LOC: EC 16:23 → 6NMEDSUR 08-08 01:32
PROVIDERS: ADMIT Hospitalist; ATTEND Hospitalist
DX: R60.0 Localized edema (principal); G62.9 Polyneuropathy, unspecified; J44.1 Chronic obstructive pulmonary disease with (acute) exacerbation; E87.1 Hypo-osmolality and hyponatremia; E87.6 Hypokalemia; E86.0 Dehydration; E46 Unspecified protein-calorie malnutrition; E88.09 Other disorders of plasma-protein metabolism, not elsewhere classified; M79.7 Fibromyalgia; R50.9 Fever, unspecified; R09.81 Nasal congestion; K58.9 Irritable bowel syndrome, unspecified; D50.9 Iron deficiency anemia, unspecified; K21.9 Gastro-esophageal reflux disease without esophagitis; G89.29 Other chronic pain; R10.9 Unspecified abdominal pain; M54.2 Cervicalgia; M51.36 Other intervertebral disc degeneration, lumbar region; E06.3 Autoimmune thyroiditis; F17.210 Nicotine dependence, cigarettes, uncomplicated; M79.89 Other specified soft tissue disorders; I73.9 Peripheral vascular disease, unspecified; G35 Multiple sclerosis; E03.9 Hypothyroidism, unspecified; F41.9 Anxiety disorder, unspecified; Z20.822 Contact with and (suspected) exposure to COVID-19; Z87.11 Personal history of peptic ulcer disease; Z90.710 Acquired absence of both cervix and uterus; Z79.899 Other long term (current) drug therapy; Z79.890 Hormone replacement therapy; Z88.8 Allergy status to other drugs, medicaments and biological substances; Z88.0 Allergy status to penicillin; Z88.7 Allergy status to serum and vaccine; Z91.041 Radiographic dye allergy status; Z80.1 Family history of malignant neoplasm of trachea, bronchus and lung; Z82.49 Family history of ischemic heart disease and other diseases of the circulatory system; Z83.79 Family history of other diseases of the digestive system
CPT/HCPCS: 96376; 96372 ×2; 96374; 96375; 99285; 36415; 93005; 85379; 84439; 83880; 80053 ×2; 84443; 83735 ×2; 84100 ×2; 84484; 85025 ×2; 71046; 93970; 70450; 71250; 74176; G0378 ×2; J2270; J1940 ×2; J1644 ×2

== ENCOUNTER 2021-09-11 11:17 | Emergency (ER) | payer MEDICARE, OTHER ==
[2021-09-11 11:26] VITALS: BP 119/77; PULSE 111; RESP 18; TEMP 97.8
[2021-09-11] MEDS ORDERED: KETOROLAC 15 MG/ML 1 ML VIAL IVP STA (12:06)
--- NOTE | 2021-09-11 12:38 | ED ---
Extremity Problem HPI - General Chief complaint: Extremity Problem,Nontraumatic Stated complaint: bilat leg edema Time Seen by Provider: 09/11/21 11:37 Source: patient, RN notes reviewed Mode of arrival: ambulatory Limitations: no limitations - History of Present Illness Initial comments: 51-year-old female presents emergency Department chief complaint of leg swelling. This is an ongoing issue for over a month. Patient was admitted or month ago for this and was advised vascular surgery that ultrasound with no specific findings. Patient states she has increasing pain and swelling primarily right leg which shows some redness she states she has an abrasion after she tripped and fell on her knee. Patient states she cannot wear the compression stockings because her legs were sore and which now her legs are more swollen. Patient also ran out of her Lasix. Patient denies any fevers or chills denies any chest pain or shortness breath - Related Data Home Medications Medication Instructions Recorded Confirmed Amitriptyline HCl [Elavil] 100 mg PO HS 07/04/18 09/11/21 Omeprazole 20 mg PO BID 07/04/18 09/11/21 Baclofen [Lioresal] 20 mg PO TID 09/13/19 09/11/21 Hydrocodone/Acetaminophen [[place] 1 tab PO TID 09/13/19 09/11/21 7.5-325] Diroximel Fumarate [Vumerity] 462 mg PO BID 11/27/20 09/11/21 Meclizine [Antivert] 25 mg PO BID PRN 08/07/21 09/11/21 OXcarbazepine [Trileptal] 150 mg PO BID 08/07/21 09/11/21 Previous Rx's Medication Instructions Recorded Albuterol Inhaler [Ventolin Hfa 1 puff INHALATION RT-QID PRN #8 gm 08/09/21 Inhaler] Furosemide [Lasix] 40 mg PO DAILY #30 tab 08/09/21 Levothyroxine Sodium [Unithroid] 75 mcg PO DAILY #30 tablet 08/09/21 Potassium Chloride ER [K-Dur 20] 20 meq PO DAILY #30 tab 08/09/21 Pregabalin [Lyrica] 100 mg PO BID 3 Days #6 cap 08/09/21 Cephalexin [Keflex] 500 mg PO Q6HR #40 cap 09/11/21 Allergies Allergy/AdvReac Type Severity Reaction Status Date / Time gabapentin [From Neurontin] Allergy Rash/Hives/Muscle Verified 09/11/21 12:49 Spasms influenza virus vaccine ts Allergy DIFFICULTY Verified 09/11/21 12:49 2012- BREATHING, [From Fluarix] RASH Iodinated Contrast Media Allergy Anaphylaxis Verified 09/11/21 12:49 [Iodinated Contrast Media - IV Dye] levothyroxine sodium Allergy Unknown Verified 09/11/21 12:49 [From Synthroid] magnesium Allergy rash,muscle Verified 09/11/21 12:49 spasms Penicillins Allergy Anaphylaxis Verified 09/11/21 12:49 tizanidine [From Zanaflex] Allergy Rash/Hives/ Verified 09/11/21 12:49 Hallucinati ons Review of Systems ROS Statement: Those systems with pertinent positive or pertinent negative responses have been documented in the HPI. ROS Other: All systems not noted in ROS Statement are negative. Past Medical History Past Medical History: Blood Disorder, COPD, Fibromyalgia, GERD/Reflux, Musculoskeletal Disorder, Thyroid Disorder Additional Past Medical History / Comment(s): Chronic, chronic peptic ulcer disease, chronic abdominal pain, COPD, chronic neck pain related to previous neck injury, previous history of perforated gastric ulcer, chronic back pain related to lumbar disc disease, irritable bowel disease, COPD. FIBROMYALGIA,MS. HASHIMOTOS AND HYPOTHYROIDISM. Seroma opatient's back. - September 2018 History of Any Multi-Drug Resistant Organisms: None Reported Past Surgical History: Breast Surgery, Hysterectomy, Orthopedic Surgery, Tubal Ligation Additional Past Surgical History / Comment(s): Breast biopsy, hysterectomy, tu bal ligation, stomach surgery for a perforated peptic ulcer, bilateral breast biopsies, right foot surgery, sinus surgery , gastrectomy. Abdominal Pain Pump surgically inserted in July 2018, removal jan 2019 Past Anesthesia/Blood Transfusion Reactions: Previous Problems w/ Anesthesia, Postoperative Nausea & Vomiting (PONV) Additional Past Anesthesia/Blood Transfusion Reaction / Comment(s): RASH from general anesthesia, RECEIVES BENADRYL FOR GENERAL ANESTHESIA. Past Psychological History: Anxiety Smoking Status: Current every day smoker Past Alcohol Use History: Rare Past Drug Use History: None Reported - Past Family History Father Family Medical History: Cancer Additional Family Medical History / Comment(s): lung cancer(inoperable) Brother(s) Family Medical History: Hypertension Mother Family Medical History: No Reported History Additional Family Medical History / Comment(s): bowel blockage and resection done General Exam Limitations: no limitations General appearance: alert, in no apparent distress Head exam: Present: atraumatic, normocephalic, normal inspection Eye exam: Present: normal appearance, PERRL, EOMI. Absent: scleral icterus, conjunctival injection, periorbital swelling ENT exam: Present: normal exam, normal oropharynx, mucous membranes moist Neck exam: Present: normal inspection, full ROM. Absent: tenderness, meningismus, lymphadenopathy Respiratory exam: Present: normal lung sounds bilaterally. Absent: respiratory distress, wheezes, rales, rhonchi, stridor Cardiovascular Exam: Present: regular rate, normal rhythm, normal heart sounds. Absent: systolic murmur, diastolic murmur, rubs, gallop, clicks Extremities exam: Present: pedal edema (Right greater than left, there is mild erythema in the right she is tender with palpation abrasion over the knee) Skin exam: Present: warm, dry Course Vital Signs 09/11/21 11:23 Temperature 97.8 F Pulse Rate 111 H Respiratory 18 Rate Blood Pressure 119/77 O2 Sat by Pulse 98 Oximetry Medical Decision Making - Medical Decision Making Patient presented for bilateral leg swelling she has primarily right leg swelling with erythema patient does have some mild signs of cellulitis. Patient has mild hyponatremia, albumin is 1.7. Patient started on oral antibiotics she is advised follow-up with primary care physician and dentist regarding her nutrition status. - Lab Data Result diagrams: 09/11/21 12:54 09/11/21 12:54 Lab Results 09/11/21 09/11/21 09/11/21 Range/Units 12:54 12:54 12:54 WBC 5.4 (3.8-10.6) k/uL RBC 3.36 L (3.80-5.40) m/uL Hgb 11.4 (11.4-16.0) gm/dL Hct 35.5 (34.0-46.0) % MCV 105.4 H (80.0-100.0) fL MCH 34.0 (25.0-35.0) pg MCHC 32.3 (31.0-37.0) g/dL RDW 15.9 H (11.5-15.5) % Plt Count 247 (150-450) k/uL MPV 7.6 Hypochromasia Slight Macrocytosis Moderate Sodium 129 L (137-145) mmol/L Potassium 3.6 (3.5-5.1) mmol/L Chloride 101 (98-107) mmol/L Carbon Dioxide 27 (22-30) mmol/L Anion Gap 1 mmol/L BUN 22 H (7-17) mg/dL Creatinine 0.56 (0.52-1.04) mg/dL Est GFR (CKD-EPI)AfAm >90 (>60 ml/min/1.73 sqM) Est GFR (CKD-EPI)NonAf >90 (>60 ml/min/1.73 sqM) Glucose 63 L (74-99) mg/dL Plasma Lactic Acid Ben 1.1 (0.7-2.0) mmol/L Calcium 7.0 L (8.4-10.2) mg/dL Total Bilirubin 0.5 (0.2-1.3) mg/dL AST 55 H (14-36) U/L ALT 59 H (4-34) U/L Alkaline Phosphatase 132 H (38-126) U/L Total Protein 3.8 L (6.3-8.2) g/dL Albumin 1.7 L (3.5-5.0) g/dL Disposition Clinical Impression: Edema due to hypoalbuminemia, Malnutrition, Bilateral leg edema, Cellulitis of right leg Disposition: HOME SELF-CARE Condition: Stable Instructions (If sedation given, give patient instructions): High Protein Diet (ED) Additional Instructions: Please return to the Emergency Department if symptoms worsen or any other concerns. Prescriptions: Cephalexin [Keflex] 500 mg PO Q6HR #40 cap Is patient prescribed a controlled substance at d/c from ED?: No Referrals: Malorie Gustafson MD [Primary Care Provider] - 1-2 days Time of Disposition: 14:12
[2021-09-11 13:08] LABS: Basophils % (A) 0 %; Eosinophils # (A) 0.1 k/uL (0-0.7); Eosinophils % (A) 1 %; HCT 35.5 % (34.0-46.0); HGB 11.4 gm/dL (11.4-16.0); Hypochromasia Slight; Lymphocytes # (A) 0.4 k/uL (1.0-4.8); Lymphocytes % (A) 8 %; MCHC 32.3 g/dL (31.0-37.0); MCV 105.4 fL (80.0-100.0); Macrocytosis Moderate; Mean Platelet Volume 7.6; Monocytes # (A) 0.2 k/uL (0-1.0); Monocytes % (A) 4 %; Neutrophils # (A) 4.6 k/uL (1.3-7.7); Neutrophils % (A) 85 %; Platelet Count 247 k/uL (150-450); RBC 3.36 m/uL (3.80-5.40); RDW 15.9 % (11.5-15.5); WBC 5.4 k/uL (3.8-10.6)
[2021-09-11 13:18] LABS: ALT 59 U/L (4-34); AST 55 U/L (14-36); African American GFR (CKD) >90 (>60 ml/min/1.73 sqM); Albumin 1.7 g/dL (3.5-5.0); Alkaline Phosphatase 132 U/L (38-126); Anion Gap 1 mmol/L; Blood Urea Nitrogen 22 mg/dL (7-17); Carbon Dioxide 27 mmol/L (22-30); Chloride 101 mmol/L (98-107); Glucose 63 mg/dL (74-99); Non-African American GFR(CKD) >90 (>60 ml/min/1.73 sqM); Potassium 3.6 mmol/L (3.5-5.1); Sodium 129 mmol/L (137-145); Total Bilirubin 0.5 mg/dL (0.2-1.3); Total Protein 3.8 g/dL (6.3-8.2)
[2021-09-11] MEDS ORDERED: cefTRIAXone IN SWFI 1,000 MG/10 ML SYRINGE IVP STA (14:08)
== END 2021-09-11 14:41 | disposition home or self-care (01) ==
LOC: EC 11:17
DX: L03.115 Cellulitis of right lower limb (principal); E88.09 Other disorders of plasma-protein metabolism, not elsewhere classified; K21.9 Gastro-esophageal reflux disease without esophagitis; E07.9 Disorder of thyroid, unspecified; Z79.83 Long term (current) use of bisphosphonates; Z79.899 Other long term (current) drug therapy; F17.200 Nicotine dependence, unspecified, uncomplicated; Z91.09 Other allergy status, other than to drugs and biological substances; Z88.7 Allergy status to serum and vaccine; Z91.041 Radiographic dye allergy status; Z88.6 Allergy status to analgesic agent; Z88.0 Allergy status to penicillin; Z88.8 Allergy status to other drugs, medicaments and biological substances
CPT/HCPCS: 36415; 80053; 83605; 85025; 99283; 96374; J1885